=== PATIENT | male | born 1930 | race Caucasian/White ===

== ENCOUNTER 2016-07-10 10:40 | Emergency (ER) | payer BC ==
[2016-07-10 13:42] VITALS: BP 144/74
--- NOTE | 2016-07-10 13:58 | UC ---
Throat Pain/Nasal Shmuel HPI - HPI Summary HPI Summary: Patient has had sinus pressure and eye "fullness" for the past week. denies any fever, but has a cough that is constant and worse at night - History of Current Complaint Chief Complaint: UCRespiratory Stated Complaint: CRAMER,COUGH,ACHY Time Seen by Provider: 07/10/16 13:45 Hx Obtained From: Patient Onset/Duration: Sudden Onset, Lasting Days Severity: Moderate Pain Intensity: 5 Pain Scale Used: 0-10 Numeric Cough: Productive Associated Signs & Symptoms: Positive: Dysphagia, Sinus Discomfort, Nasal Discharge - Epiglottits Risk Factors Epiglottis Risk Factors: Negative - Allergies/Home Medications Allergies/Adverse Reactions: Allergies Allergy/AdvReac Type Severity Reaction Status Date / Time No Known Allergies Allergy Verified 07/10/16 13:37 PMH/Surg Hx/FS Hx/Imm Hx Previously Healthy: Yes Endocrine History Of: Reports: Diabetes, Thyroid Disease Cardiovascular History Of: Reports: Cardiac Disorders, Hypertension - Surgical History Surgical History: Yes Surgery Procedure, Year, and Place: open heart. appy - Family History Known Family History: Negative: Cardiac Disease, Hypertension - Social History Alcohol Use: Daily Alcohol Amount: wine Substance Use Type: None Smoking Status (MU): Never Smoked Tobacco Review of Systems Constitutional: Fatigue Skin: Negative Eyes: Eye Redness ENT: Sore Throat, Nasal Discharge Respiratory: Cough Cardiovascular: Negative Gastrointestinal: Negative Genitourinary: Negative Motor: Negative Neurovascular: Negative Musculoskeletal: Negative Neurological: Headache Psychological: Negative All Other Systems Reviewed And Are Negative: Yes Physical Exam Triage Information Reviewed: Yes Appearance: No Pain Distress, Well-Nourished, Ill-Appearing Vital Signs: Initial Vital Signs Temp 97.9 F 07/10/16 13:37 Pulse 75 07/10/16 13:37 Resp 18 07/10/16 13:37 BP 144/74 07/10/16 13:37 Pulse Ox 99 07/10/16 13:37 Vital Signs Reviewed: Yes Eye Exam: Normal Eyes: Positive: Conjunctiva Inflamed ENT: Positive: Pharyngeal erythema, Nasal congestion, Nasal drainage, TMs normal , Tonsillar exudate Dental Exam: Normal Neck exam: Normal Neck: Positive: Supple, Nontender, No Lymphadenopathy Respiratory Exam: Normal Respiratory: Positive: Chest non-tender, No respiratory distress, No accessory muscle use, Wheezing, Inspiration Cardiovascular Exam: Normal Cardiovascular: Positive: RRR, No Murmur, Pulses Normal Abdominal Exam: Normal Abdomen Description: Positive: Nontender, No Organomegaly, Soft Bowel Sounds: Positive: Present Musculoskeletal Exam: Normal Musculoskeletal: Positive: Strength Intact, ROM Intact, No Edema Neurological Exam: Normal Neurological: Positive: Alert, Muscle Tone Normal Psychological Exam: Normal Skin Exam: Normal Throat Pain/Nasal Course/Dx - Course Course Of Treatment: history obtained, exam performed, medication prescribed. - Differential Dx/Diagnosis Differential Diagnosis/HQI/PQRI: Otitis Media, Pharyngitis, Sinusitis, Tonsillitis Provider Diagnoses: sinusitis Discharge - Discharge Plan Condition: Stable Disposition: HOME Patient Education Materials: Sinusitis (ED) Additional Instructions: take medication as prescribed. if symptoms persist follow up with Dr Monroy.
== END 2016-07-10 14:15 | disposition home or self-care (01) ==
LOC: UCCORT 10:40
DX: J32.9 Chronic sinusitis, unspecified (principal); E11.9 Type 2 diabetes mellitus without complications; I10 Essential (primary) hypertension
CPT/HCPCS: 99202; G0463

== ENCOUNTER 2016-08-28 10:11 | Emergency (ER) | payer BC ==
[2016-08-28 11:03] VITALS: BP 121/72
--- NOTE | 2016-08-28 11:25 | UC ---
Knee Pain HPI - HPI Summary HPI Summary: left knee and ankle pain for a few months. Started with ankle pain, after being on hands and knees in an awkward position for a while. Gradually the left knee started to hurt. Both swelled up. Usually walks with a cane due to Parkinson's, now finding the need to walk with TWO canes due to the joint pain. Not using any meds for it. [facility], [facility] suggested he follow up with his primary care doctor and get XRays and maybe a brace. - History of Current Complaint Chief Complaint: UCLowerExtremity Stated Complaint: LEFT ANKLE/KNEE PAIN Time Seen by Provider: 08/28/16 11:11 Hx Obtained From: Patient, Family/Configuration Specialist - Onset/Duration: Gradual Onset, Lasting Weeks - 8 Severity Initially: Mild Severity Currently: Moderate Character: Dull, Aching, Stiffness Aggravating Factor(s): Weight Bearing, Prolonged Standing, Stairs Alleviating Factor(s): Rest, Position Associated Signs And Symptoms: Positive: Swelling. Negative: Redness, Bruising , Fever, Weakness, Numbness, Tingling Able to Bear Weight: Yes - with 2 canes - Risk Factors Septic Arthritis Risk Factor: Negative Gout Risk Factor: Age ^ 41, Male, HTN - Allergies/Home Medications Allergies/Adverse Reactions: Allergies Allergy/AdvReac Type Severity Reaction Status Date / Time No Known Allergies Allergy Verified 08/28/16 10:56 Home Medications: Home Medications Carbidopa/Levodop 25/100 MG(*) [Sinemet 25/100 TAB(*)] 1.5 tab PO QID 08/28/16 [ History Confirmed 08/28/16] PMH/Surg Hx/FS Hx/Imm Hx - Additional Past Medical History Additional PMH: Parkinson's disease Endocrine History Of: Reports: Diabetes, Thyroid Disease Cardiovascular History Of: Reports: Cardiac Disorders - CAD, Quadruple Bypass 2005, Hypertension - Surgical History Surgical History: Yes Surgery Procedure, Year, and Place: Quadruple Bypass, 2005, [place]; Appendectomy as a child - Family History Known Family History: Negative: Cardiac Disease, Hypertension - Social History Occupation: Retired Lives: With Family Alcohol Use: Daily Alcohol Amount: wine Substance Use Type: None Smoking Status (MU): Never Smoked Tobacco - Immunization History Most Recent Influenza Vaccination: June 2016 Review of Systems Constitutional: Negative Skin: Negative Eyes: Negative ENT: Negative Respiratory: Negative Cardiovascular: Negative Gastrointestinal: Negative Genitourinary: Negative Motor: Negative Neurovascular: Negative Musculoskeletal: Arthralgia Neurological: Negative Psychological: Negative All Other Systems Reviewed And Are Negative: Yes Physical Exam Triage Information Reviewed: Yes Appearance: Well-Appearing, No Pain Distress, Well-Nourished Vital Signs: Initial Vital Signs Temp 97.4 F 08/28/16 10:49 Pulse 86 08/28/16 10:49 Resp 16 08/28/16 10:49 BP 121/72 08/28/16 10:49 Pulse Ox 96 08/28/16 10:49 Vital Signs Reviewed: Yes Eye Exam: Normal Neck exam: Normal Respiratory Exam: Normal Cardiovascular Exam: Normal Musculoskeletal Exam: Other - left knee and ankle swollen. Appear to be arthritic. No redness or increased warmth. Mild discomfort on motion. Neurological Exam: Normal Psychological Exam: Normal Skin Exam: Normal Diagnostics - Laboratory Diagnostic Studies Completed/Ordered: xrays ankle and knee: advanced DJD Knee Pain Course/Dx - Differential Dx/Diagnosis Differential Diagnosis/HQI/PQRI: Fracture (Closed), Gout, Internal Derangement Of Knee, Infection Provider Diagnoses: osteoarthritis Discharge - Discharge Plan Condition: Stable Disposition: HOME Prescriptions: Elastic Bandages & Supports [Knee Compression Sleeve/l] 1 mis XX DAILY PRN #1 mis PRN Reason: knee pain Meloxicam [Mobic] 15 mg PO DAILY PRN #30 tab PRN Reason: Pain Patient Education Materials: Osteoarthritis (ED) Referrals: Denia Monroy MD [Primary Care Provider] -
--- NOTE | 2016-08-28 11:47 | RAD ---
HISTORY: Left knee pain COMPARISONS: None VIEWS: 4, Frontal, lateral, axial, and oblique views of the left knee FINDINGS: BONE DENSITY: There is diffuse osteopenia. BONES: There is no displaced fracture. JOINTS: There is moderate tricompartmental osteoarthritis. There is a small suprapatellar joint effusion. ALIGNMENT: There is no dislocation. SOFT TISSUES: There is peripheral arterial calcification OTHER FINDINGS: None. IMPRESSION: OSTEOPENIA. OSTEOARTHRITIS. JOINT EFFUSION. PERIPHERAL ARTERIAL DISEASE. NO ACUTE OSSEOUS INJURY. THE DEGREE OF OSTEOPENIA MAY MAKE A NONDISPLACED FRACTURE RADIOGRAPHICALLY OCCULT. IF SYMPTOMS PERSIST, RECOMMEND REPEAT IMAGING.
--- NOTE | 2016-08-28 11:48 | RAD ---
HISTORY: Left ankle pain COMPARISONS: None VIEWS: 3, Frontal, lateral, and oblique views of the left ankle FINDINGS: BONE DENSITY: Normal. BONES: There is no displaced fracture. Calcaneal enthesophytes are noted JOINTS: There is mild osteoarthritis of the tibiotalar and fibulotalar articulations. ALIGNMENT: There is no dislocation. SOFT TISSUES: There is peripheral arterial calcification OTHER FINDINGS: None. IMPRESSION: 1. OSTEOPENIA. 2. OSTEOARTHRITIS. 3. PERIPHERAL ARTERIAL DISEASE. 4. NO ACUTE OSSEOUS INJURY. THE DEGREE OF OSTEOPENIA MAY MAKE A NONDISPLACED FRACTURE RADIOGRAPHICALLY OCCULT. IF SYMPTOMS PERSIST, RECOMMEND REPEAT IMAGING.
== END 2016-08-28 12:19 | disposition home or self-care (01) ==
LOC: UCCORT 10:11
DX: M19.072 Primary osteoarthritis, left ankle and foot (principal); M85.872 Other specified disorders of bone density and structure, left ankle and foot; I73.9 Peripheral vascular disease, unspecified; M17.12 Unilateral primary osteoarthritis, left knee; M25.462 Effusion, left knee
CPT/HCPCS: 99213; G0463

== ENCOUNTER 2017-02-20 14:10 | Emergency (ER) | payer BC ==
--- NOTE | 2017-02-20 14:51 | UC ---
Complaint Female HPI - HPI Summary HPI Summary: 86 YEAR OLD MALE PRESENTS WITH COMPLAINS OF URINARY FREQUENCY, URGENCY AND BURNING. - History Of Current Complaint Stated Complaint: URINARY COMPLAINT Time Seen by Provider: 02/20/17 14:49 Onset/Duration: Sudden Onset Timing: Constant Severity Initially: Moderate Severity Currently: Moderate Pain Scale Used: 0-10 Numeric - 4 Character: Sharp Aggravating Factor(s): Movement Associated Signs And Symptoms: Positive: Negative - Allergies/Home Medications Allergies/Adverse Reactions: Allergies Allergy/AdvReac Type Severity Reaction Status Date / Time No Known Allergies Allergy Verified 02/20/17 15:02 Home Medications: Home Medications Polyethylene Glycol 3350* [Miralax*] 17 gm PO DAILY 02/20/17 [History Confirmed 02/20/17] Sulindac 150 mg PO BID 02/20/17 [History Confirmed 02/20/17] Torsemide TAB* [Demadex*] 20 mg PO DAILY 02/20/17 [History Confirmed 02/20/17] PMH/Surg Hx/FS Hx/Imm Hx Previously Healthy: Yes - Surgical History Surgical History: Yes Surgery Procedure, Year, and Place: Quadruple Bypass, [facility]– [place], [place]; Appendectomy as a child - Family History Known Family History: Negative: Cardiac Disease, Hypertension - Social History Alcohol Use: Daily Alcohol Amount: wine Substance Use Type: None Smoking Status (MU): Never Smoked Tobacco - Immunization History Most Recent Influenza Vaccination: June 2016 Review of Systems Constitutional: Negative Skin: Negative Eyes: Negative ENT: Sore Throat, Nasal Discharge, Sinus Congestion, Sinus Pain/Tenderness Respiratory: Negative Cardiovascular: Negative Gastrointestinal: Negative Genitourinary: Negative Motor: Negative Neurovascular: Negative Musculoskeletal: Negative Neurological: Negative Psychological: Negative All Other Systems Reviewed And Are Negative: Yes Physical Exam Triage Information Reviewed: Yes Eye Exam: Normal ENT: Positive: Pharyngeal erythema, Nasal drainage, Other: - BILATERAL CERUMEN IMPACTION Dental Exam: Normal Neck exam: Normal Neck: Positive: 1 Respiratory Exam: Normal Cardiovascular Exam: Normal Abdominal Exam: Normal Musculoskeletal Exam: Normal Neurological Exam: Normal Psychological Exam: Normal Skin Exam: Normal Complaint Female Dx - Differential Dx/Diagnosis Provider Diagnoses: CERUMEN IMPACTION BILATERAL. PHARYNGITIS. SINUSITIS Discharge - Discharge Plan Condition: Stable Disposition: HOME Prescriptions: Ciprofloxacin TAB* [Cipro 500 MG TAB*] 500 mg PO BID #10 tab Patient Education Materials: Urinary Tract Infection in Women (ED) Referrals: Denia Monroy MD [Primary Care Provider] - If Needed
[2017-02-20 15:22] VITALS: BP 137/76
== END 2017-02-20 15:39 | disposition home or self-care (01) ==
LOC: UCCORT 14:10
DX: H61.23 Impacted cerumen, bilateral (principal); J02.9 Acute pharyngitis, unspecified; J32.9 Chronic sinusitis, unspecified
CPT/HCPCS: 81003; 87086; 99212; G0463

== ENCOUNTER 2018-10-16 16:26 | Emergency (ER) | payer MEDICARE ==
[2018-10-16 17:36] VITALS: BP 123/66
--- NOTE | 2018-10-17 10:07 | UC ---
- Progress Note Progress Note: Patient Name: CAROLINE BERMUDEZ JR Medical Record#: [id number] Ordering Physician: Zenia Berman MD Acct.#: [id number] : 1930 Age: 88 Sex: M [place] [facility] [place]: 10/16/181827 ADM Status: [facility] ER Order Information: HAND - LEFT MINIMUM 3 VIEWS Accession Number: [id number] CPT: 13250 INDICATION: Left hand injury. TECHNIQUE: 4 views of the left hand were obtained. FINDINGS: The bones are osteopenic and in normal alignment. No fracture is seen. There is mild to moderate osteoarthritic change in the proximal and distal interphalangeal joints. IMPRESSION: NO EVIDENCE FOR FRACTURE, IF THE PATIENT'S SYMPTOMS PERSIST RECOMMEND FOLLOW-UP IMAGING. R0 Preliminary Imaging Read R0 <Electronically signed by Sohail Carmen MD in [place]> 10/17/18731 Dictated By: Sohail Carmen MD Dictated Date/Time: 10/17/18731 Transcribed Date/Time: 10/17/18729 Copy to: CC:Denia Monroy MD; Zenia Berman MD Imaging - [facility] Imaging - [facility] [address] [place] [address] ph ([phone]) ph ([phone]) ph ([phone]) This report is only to be considered final once signed by the Provider(s) as displayed in the "<Electronically Signed by >" field (s). Absence of a signature indicates the report is in a draft status and still needs to be finalized. In the event this document was created by someone other than the signing Provider, the individual initiating the document will be listed in the "Entered by:" or "Dictated by:" briseno. 1 of 1 Course/Dx - Diagnoses Provider Diagnoses: Urinary frequency, Hand contusion Discharge - Sign-Out/Discharge Documenting (check all that apply): Post-Discharge Follow Up All imaging exams completed and their final reports reviewed: Yes - Discharge Plan Condition: Stable Disposition: HOME Prescriptions: Cephalexin CAP* [Keflex 500 CAP*] 500 mg PO BID #14 cap Patient Education Materials: Urinary Urgency and Frequency (DC) Referrals: Denia Monroy MD [Primary Care Provider] - Additional Instructions: As discussed, your urine did not show an obvious infection today. However, given your symptoms, you have been started on antibiotics. Your urine will sent for additional testing. Stay hydrated. Drink plenty of fluids Monitor your symptoms VERY closely - if you develop fevers, confusion, nausea, pain or ANY other concerns it is recommended you go immediately to the emergency department for further testing Keep your appointment as scheduled with your primary doctor on Sunday. As discussed, your radiograph was reviewed by the provider that treated you tonight. It will be read by a radiologist tomorrow morning. If there is a finding other than that discussed with you today, you will receive a call from a care provider. - Billing Disposition and Condition Condition: STABLE Disposition: Home
--- NOTE | 2018-10-19 07:35 | UC ---
- Progress Note Progress Note: notify pt no uti see primary if still symptomatic stop antibiotic Course/Dx - Diagnoses Provider Diagnoses: Urinary frequency, Hand contusion Discharge - Sign-Out/Discharge Documenting (check all that apply): Post-Discharge Follow Up All imaging exams completed and their final reports reviewed: Yes - Discharge Plan Condition: Stable Disposition: HOME Prescriptions: Cephalexin CAP* [Keflex 500 CAP*] 500 mg PO BID #14 cap Patient Education Materials: Urinary Urgency and Frequency (DC) Referrals: Denia Monroy MD [Primary Care Provider] - Additional Instructions: As discussed, your urine did not show an obvious infection today. However, given your symptoms, you have been started on antibiotics. Your urine will sent for additional testing. Stay hydrated. Drink plenty of fluids Monitor your symptoms VERY closely - if you develop fevers, confusion, nausea, pain or ANY other concerns it is recommended you go immediately to the emergency department for further testing Keep your appointment as scheduled with your primary doctor on Sunday. As discussed, your radiograph was reviewed by the provider that treated you tonight. It will be read by a radiologist tomorrow morning. If there is a finding other than that discussed with you today, you will receive a call from a care provider. - Billing Disposition and Condition Condition: STABLE Disposition: Home
--- NOTE | 2018-10-29 09:30 | UC ---
Complaint Male HPI - HPI Summary HPI Summary: Pt with urinary frequency, urgency. h/o similar with uti. no dysuria, no hematuria No n/v. no abd pain. no back pain. No fever, chills, rash no cp, sob Here with family med reviewed - History of Current Complaint Chief Complaint: UCGU Stated Complaint: URINARY Time Seen by Provider: 10/16/18 17:43 Hx Obtained From: Patient, Family/Seamless Hosiery Knitter, Medical Records Pain Intensity: 0 Pain Scale Used: 0-10 Numeric - Allergies/Home Medications Allergies/Adverse Reactions: Allergies Allergy/AdvReac Type Severity Reaction Status Date / Time No Known Allergies Allergy Verified 10/16/18 17:31 Home Medications: Home Medications Atorvastatin* [Lipitor*] 20 mg PO 1700 10/16/18 [History Confirmed 10/16/18] Ranolazine (NF) [Ranexa (NF)] 500 mg PO DAILY 10/16/18 [History Confirmed ] Sertraline HCl [Zoloft] 25 mg PO DAILY 10/16/18 [History Confirmed 10/16/18] Terazosin CAP* [Hytrin CAP*] 1 mg PO BEDTIME 10/16/18 [History Confirmed ] PMH/Surg Hx/FS Hx/Imm Hx Previously Healthy: Yes - Surgical History Surgical History: Yes Surgery Procedure, Year, and Place: Quadruple Bypass, 2005, [place]; Appendectomy as a child. [place] - Family History Known Family History: Negative: Cardiac Disease, Hypertension - Social History Occupation: Retired Lives: Assisted Living Alcohol Use: Daily Alcohol Amount: wine Substance Use Type: None Smoking Status (MU): Never Smoked Tobacco - Immunization History Most Recent Influenza Vaccination: June 2016 Review of Systems All Other Systems Reviewed And Are Negative: Yes Constitutional: Positive: Negative Skin: Positive: Negative Eyes: Positive: Negative Physical Exam Triage Information Reviewed: Yes Appearance: Well-Appearing, No Pain Distress Vital Signs: Initial Vital Signs Temp 97.9 F 10/16/18 17:31 Pulse 88 10/16/18 17:31 Resp 16 10/16/18 17:31 BP 123/66 10/16/18 17:31 Pulse Ox 94 10/16/18 17:31 Vital Signs Reviewed: Yes Eye Exam: Normal Eyes: Positive: Conjunctiva Clear ENT Exam: Normal ENT: Positive: Normal ENT inspection, Hearing grossly normal Neck exam: Normal Neck: Positive: Supple, Nontender, No Lymphadenopathy Respiratory Exam: Normal Respiratory: Positive: Chest non-tender, Lungs clear, Normal breath sounds, No respiratory distress, No accessory muscle use Cardiovascular Exam: Normal Cardiovascular: Positive: RRR, No Murmur Abdominal Exam: Normal Abdomen Description: Positive: Nontender, No Organomegaly, Soft. Negative: CVA Tenderness (R), CVA Tenderness (L) Musculoskeletal: Positive: Other: - mild dsicmofrt left wrist, radial aspect + full ROM Neurological Exam: Normal Neurological: Positive: Alert Psychological Exam: Normal Complaint Male Course/Dx - Course Course Of Treatment: Pt with urinary frequency, urgency. h/o uti urine non convincing for UTI - but sx concerning will start keflex with culture pending Pt with discomfort left hand -will check xray if neg, supportive care strict return precautions - Differential Dx/Diagnosis Provider Diagnosis: Urinary frequency, Hand contusion Discharge - Sign-Out/Discharge Documenting (check all that apply): Patient Departure All imaging exams completed and their final reports reviewed: Yes - Discharge Plan Condition: Stable Disposition: HOME Prescriptions: Cephalexin CAP* [Keflex 500 CAP*] 500 mg PO BID #14 cap Patient Education Materials: Urinary Urgency and Frequency (DC) Referrals: Denia Monroy MD [Primary Care Provider] - Additional Instructions: As discussed, your urine did not show an obvious infection today. However, given your symptoms, you have been started on antibiotics. Your urine will sent for additional testing. Stay hydrated. Drink plenty of fluids Monitor your symptoms VERY closely - if you develop fevers, confusion, nausea, pain or ANY other concerns it is recommended you go immediately to the emergency department for further testing Keep your appointment as scheduled with your primary doctor on Sunday. As discussed, your radiograph was reviewed by the provider that treated you tonight. It will be read by a radiologist tomorrow morning. If there is a finding other than that discussed with you today, you will receive a call from a care provider. - Billing Disposition and Condition Condition: STABLE Disposition: Home
== END 2018-10-16 18:47 | disposition home or self-care (01) ==
LOC: UCCORT 16:26
DX: R35.0 Frequency of micturition (principal); Z87.440 Personal history of urinary (tract) infections; S60.222A Contusion of left hand, initial encounter; X58.XXXA Exposure to other specified factors, initial encounter; Y92.9 Unspecified place or not applicable; Z95.1 Presence of aortocoronary bypass graft
CPT/HCPCS: 81003; 87086; 99212; G0463

== ENCOUNTER 2019-01-25 16:10 | Emergency (ER) | payer MEDICARE ==
[2019-01-25 16:29] VITALS: BP 123/74
[2019-01-25] MEDS ORDERED: Aspirin 81 mg CHEW TAB* 81 MG TAB.CHEW PO ONE (16:36)
--- NOTE | 2019-01-25 16:36 | UC ---
Cardiac HPI - HPI Summary HPI Summary: 88 yo male has had numerous episodes of sharp chest pain since arising this AM Was very frequent this AM and was associated with mild SOB NO nausea no diaphoresis not dizzy CP last minutes (usually 2-5) - History of Current Complaint Stated Complaint: CHEST PAIN Time Seen by Provider: 01/25/19 16:16 Hx Obtained From: Patient Onset/Duration: Sudden Onset, Lasting Minutes Timing: Intermittent Episodes Lasting: Initial Severity: Moderate Current Severity: None Pain Intensity: 0 Chest Pain Location: Mid Sternal Character: Sharp/Stabbing Aggravating Factor(s): Nothing Alleviating Factor(s): Spontaneous Resolution Associated Signs & Symptoms: Positive: Chest Pain. Negative: Vision Changes, Anxiety, Recent Stress, Headaches, Numbness, Tingling, Weakness, Dizziness - " no worse than normal", SOB, Swelling, Syncope, Fever, Diaphoresis, Nausea/ Vomiting, Palpitations, Cough, Hemoptysis, Back Pain, Abdominal Pain, Calf Pain/ Swelling - Allergy/Home Medications Allergies/Adverse Reactions: Allergies Allergy/AdvReac Type Severity Reaction Status Date / Time No Known Allergies Allergy Verified 10/16/18 17:31 Home Medications: Home Medications Nitroglycerin TAB 0.4 MG* 0.4 mg SL Q5M PRN 01/25/19 [History Confirmed 01/25/19 ] PMH/Surg Hx/FS Hx/Imm Hx Previously Healthy: Yes Endocrine History: Diabetes, Dyslipidemia Cardiovascular History: Cardiac Disease, Hypertension - Surgical History Surgical History: Yes Surgery Procedure, Year, and Place: Quadruple Bypass, [facility] [place], [place]; Appendectomy as a child. [place] - Family History Known Family History: Negative: Cardiac Disease, Hypertension - Social History Alcohol Use: Daily Alcohol Amount: wine Substance Use Type: None Smoking Status (MU): Never Smoked Tobacco - Immunization History Most Recent Influenza Vaccination: June 2016 Review of Systems All Other Systems Reviewed And Are Negative: Yes Constitutional: Positive: Negative Skin: Positive: Negative Eyes: Positive: Negative ENT: Positive: Negative Respiratory: Positive: Negative Cardiovascular: Positive: Chest Pain - none now Gastrointestinal: Positive: Negative Genitourinary: Positive: Negative Motor: Positive: Negative Neurovascular: Positive: Negative Musculoskeletal: Positive: Negative Neurological: Positive: Negative Psychological: Positive: Negative Physical Exam Triage Information Reviewed: Yes Appearance: Well-Appearing, No Pain Distress, Well-Nourished Vital Signs Reviewed: Yes Eyes: Positive: Conjunctiva Clear ENT: Positive: Hearing grossly normal. Negative: Nasal congestion, Nasal drainage, Muffled voice, Hoarse voice Dental Exam: Normal Neck: Positive: Supple Respiratory: Positive: Lungs clear, Normal breath sounds, No respiratory distress, No accessory muscle use Cardiovascular: Positive: RRR. Negative: Tachycardia, Bradycardia Abdomen Description: Negative: Nontender - tender epigastrium and LUQ (mild), Bruit, Pulsatile Mass Bowel Sounds: Positive: Present Musculoskeletal: Positive: ROM Intact, No Edema Neurological: Positive: Alert Psychological Exam: Normal Psychological: Positive: Decreased Age Appropriate Behavior Diagnostics - EKG Cardiac Rate: NL Cardiac Rhythm: Sinus: Normal Ectopy: PVCs ST Segment: Normal Summary of EKG Findings: LAD, LAHB - Assessment/Plan Course Of Treatment: D/W Vivienne Henriquez NP at [facility] Patient desires to go by POV Daughter driving given three baby ASA here - Clinical Impression Provider Diagnosis: Chest pain of uncertain etiology Discharge - Sign-Out/Discharge Documenting (check all that apply): Patient Departure All imaging exams completed and their final reports reviewed: No Studies - Discharge Plan Condition: Fair Disposition: HOME-RECOMMEND TO ED Referrals: Denia Monroy MD [Primary Care Provider] - Additional Instructions: please go directly to the ER for evaluation - Billing Disposition and Condition Condition: FAIR Disposition: Home-Recommend to ED
== END 2019-01-25 16:44 | disposition home health service (06) ==
LOC: UCCORT 16:10
DX: R07.9 Chest pain, unspecified (principal); E11.9 Type 2 diabetes mellitus without complications; I11.9 Hypertensive heart disease without heart failure; Z95.1 Presence of aortocoronary bypass graft
CPT/HCPCS: 93005; 99212; A9270-GY; G0463

== ENCOUNTER 2019-03-12 10:19 | Emergency (ER) | payer MEDICARE ==
--- OUTSIDE RECORDS SUMMARY | 2019-03-12 11:20 | XMS REPORT | Continuity of Care Document ---
:1930 External Reference #:[id number] Author Name Denia Monroy MD (transmitted by agent of provider Lisette Jin) Address [address] [place] [address] Problems Active Problems Provider Date Type 2 diabetes mellitus Denia Monroy MD Onset: 02/18/2013 Secondary parkinsonism Denia Monroy MD Onset: 02/18/2013 Mixed hyperlipidemia Denia Monroy MD Onset: 02/18/2013 Benign essential hypertension Denia Monroy MD Onset: 02/18/2013 Hypothyroidism Denia Monroy MD Onset: 02/18/2013 Coronary arteriosclerosis Denia Monroy MD Onset: 02/18/2013 Vitamin D deficiency Denia Monroy MD Onset: 02/18/2013 Cortical senile cataract Denia Monroy MD Onset: 05/09/2013 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 Social History Type Date Description Comments Sex Unknown ETOH Use Consumes 2 glasses of wine per day Tobacco Use Start: Unknown End: Unknown Patient is a former smoker Smoking Status Reviewed: 10/24/17 Patient is a former smoker Allergies, Adverse Reactions, Alerts Description No Known Drug Allergies Medications Active Medications SIG Qnty Indications Ordering Date Provider Sertraline HCL 1 by mouth every 90tabs Denia Monroy MD 08/15/2018 25mg evening Tablets Acetaminophen take two tablets 100tabs Denia Monroy MD 04/11/2017 325mg by mouth every 6 Tablets hours as needed for pain Atorvastatin Calcium 1 by mouth evening 90tabs Denia Monroy MD 04/11/2017 20mg Tablets Sulindac tab 1 by mouth bid 180tabs Denia Monroy MD 10/09/2016 150mg Tablets Lancets 28G as directed for fs 100units Denia Monroy MD 09/13/2016 28G Misc testing a day dx e11.65 [place] as directed for Denia Monroy MD 08/31/2016 Wheels/8 Adjustment gait instability Holes/1-07/16" and Parkinson's -07/16" Misc Contour Lancets test twice a day 100units Denia Monroy MD 10/16/2013 dx 250.02 called Lancets to pharm Freestyle Lite Test test once a week 200units Cori Morales, 10/08/2013 Strips or as needed. M.D. Strips e11.65 Nitrostat 1 sl as needed for 25tagustabo Monroy MD 02/18/2013 0.3mg cp, may repeat Tablets Sub every 5 mins x 3and then call 911 Multi For Him Denia Monroy MD 02/18/2013 Capsules Vitamin D3 High 1 po qd 180caps Denia Monroy MD 02/18/2013 Potency 1000Unit Capsules Levothyroxine Sodium 1 po qd 90tabs Denia Monroy MD 02/18/2013 150mcg Tablets Lactaid 1 po prn as Denia Monroy MD 02/18/2013 3000Unit directed Tablets Aspir-Low 1 po qd 90tabs Denia Monroy MD 02/18/[address] Nguyen 1.5 tabs po Sourav Enriquez 25-100mg MD Tablets Ranexa 1 by mouth a day Unknown 500mg Tablets for chest pain ER 12HR Neurontin tab 1 by mouth Unknown 300mg three times a day Capsules Torsemide 1 by mouth every Unknown 20mg day Tablets Miralax 17 gms in 8 oz h2o Unknown [id number] Packet every day Terazosin HCL 1 tab by mouth 90captejinder Monroy MD 1mg every night at Capsules bedtime Immunizations CPT Code Status Date Vaccine Lot # [id number] Given 11/19/2018 Pneumovax Polyvalent Inj Im Q2035 Given 04/19/2018 Influenza Virus (Afluria) Split Virus 3 Years Of Age And Older Q2035 Given 04/19/2018 Influenza Virus (Afluria) Split Virus 3 Years Of [id number] Age And Older Q2035 Given 04/11/2017 Influenza Virus (Afluria) Split Virus 3 Years Of Age And Older Q2037 Given 04/13/2016 Influenza Vaccine (Fluvirin) 3 Years Of Age Or Older [id number] Given 05/13/2015 Pneumococcal Conjugate Vaccine 13 Valent For [id number] Intramuscular Use Q2035 Given 04/22/2015 Influenza Virus (Afluria) Split Virus 3 Years Of [id number] Age And Older Q2037 Given 04/14/2014 Influenza Vaccine (Fluvirin) 3 Years Of Age Or [id number] Older 34007 Given 04/14/2014 Pneumovax Polyvalent Inj Im Q2038 Given 04/02/2013 Influenza Vaccine (Fluzone) Administered Age 3 And Older Q2038 Given 04/02/2013 Influenza Vaccine (Fluzone) Administered Age 3 [id number] And Older 35421 Given 06/12/2012 Tetanus,Diphtheria,Adut/Adol Pertussis 27365 Given 07/09/2008 Pneumovax Polyvalent Inj Im Vital Signs Date Vital Result Comment 03/11/2019 9:03am BP Systolic 150 mmHg BP Diastolic 82 mmHg Heart Rate 92 /min Height 69 inches 5'9" O2 % BldC Oximetry 90 % 02/26/2019 3:14pm BP Systolic 98 mmHg BP Diastolic 64 mmHg Heart Rate 94 /min Body Temperature 99.5 F Height 69 inches 5'9" Weight 995.00 lb BMI (Body Mass Index) 146.9 kg/m2 O2 % BldC Oximetry 95 % Results Test Date Facility Test Result H/L Range Note CBC 02/27/2019 [facility] White Blood Count 4.5 K/uL Normal 3.4-10.5 1 [address] [place] [address] [phone] Red Blood Count 3.92 M/uL Low 4.20-5.80 Hemoglobin 13.2 gm/dL Normal 12.8-17.0 Hematocrit 38.6 % Normal 38.0-48.0 Mean Cell Volume 98.5 fl High 80.0-96.0 Mean Corpuscular HGB 33.7 pg High 27.0-33.0 Mean Corpuscular HGB Conc 34.2 g/dL Normal 31.7-36.0 Platelet Count 136 K/uL Low 155-360 Red Cell Distri Width SD 46.3 fl Normal 36-51 Red Cell Distri Width %CV 13.1 % Normal 11.6-15.8 Mean Platelet Volume 9.9 fl Normal 6.6-10.6 NRBC % 0.0 /100WBC < 10/ 100 WBC Basic Metabolic 02/27/2019 [facility] Glucose 110 mg/ dL High 74-106 [address] [place], [place] [id number] [phone] BUN 20 mg/dL High 7-18 Creatinine 0.9 mg/dL Normal 0.6-1.3 Glom Filtration Rate, Estimate >60 mL/min >60 If >60 mL/min >60 3 BUN/Creat 22.2 ratio Sodium 141 mmol/L Normal 136-145 Potassium 3.9 mmol/L Normal 3.5-5.1 Chloride 107 mmol/L Normal 98-107 Carbon Dioxide 28 mmol/L Normal 21-32 Anion Gap 6 mEq/L Low 8-16 Calcium 8.1 mg/dL Low 8.5-10.1 Ua RFX Micro & 02/26/2019 [facility] Urine Color YELLOW Yellow 4 Culture II [address] [place], [place] [id number] [phone] Urine Clarity CLEAR Clear Urine Glucose - Dipstick NEGATIVE mg/dL Negative Urine Bilirubin - Dipstick NEGATIVE Negative Urine Ketone NEGATIVE mg/dL Negative Urine Specific Hamilton 1.010 Normal 1.010-1.030 Urine Blood NEGATIVE Negative Urine PH 5.5 Low 6.5-7.5 Urine Protein - Dipstick NEGATIVE mg/dL Negative Urine Urobilinogen - Dipstick 0.2 E.U./dL Normal 0.2-1.0 Urine Nitrite - Dipstick NEGATIVE Negative Urine Leuk Esterase NEGATIVE Negative Source: URINE, CLEAN CAT <SEE NOTE> 5 CBS W/Automated 02/26/2019 [facility] White 4.9 K/uL Normal 3.4-10.[address] [place] [address] Count [phone] Red Blood Count 4.10 M/uL Low 4.20-5.80 Hemoglobin 14.0 gm/dL Normal 12.8-17.0 Hematocrit 40.5 % Normal 38.0-48.0 Mean Cell Volume 98.8 fl High 80.0-96.0 Mean Corpuscular HGB 34.1 pg High 27.0-33.0 Mean Corpuscular HGB Conc 34.6 g/dL Normal 31.7-36.0 Platelet Count 153 K/uL Low 155-360 Red Cell Distri Width SD 46.7 fl Normal 36-51 Red Cell Distri Width %CV 13.1 % Normal 11.6-15.8 Mean Platelet Volume 9.6 fl Normal 6.6-10.6 Neut% 65.3 % Normal 33.0-73.0 Lymph % 19.5 % Low 20.0-42.0 Orange % 12.2 % High 0.0-10.0 Eo% 2.0 % Normal 0.0-6.6 Bas% 0.6 % Normal 0.0-1.1 Immature Grans 0.4 % Normal 0.0-5.0 NRBC % 0.0 /100WBC < 10/ 100 WBC Neut# 3.21 K/uL Normal 1.8-7.0 Lymph # 0.96 K/uL Low 1.0-4.0 Orange # 0.60 K/uL Normal 0.0-0.8 Eos # 0.10 K/uL Normal 0.0-0.5 Baso # 0.03 K/uL Normal 0.0-0.1 Immature Grans Absolute 0.02 K/uL NRBC # 0.00 K/uL CBS W/Automated 01/25/2019 [facility] White 5.5 K/uL Normal 3.4-10.5 [address] [place] [address] Count [phone] Red Blood Count 4.38 M/uL Normal 4.20-5.80 Hemoglobin 15.1 gm/dL Normal 12.8-17.0 Hematocrit 43.0 % Normal 38.0-48.0 Mean Cell Volume 98.2 fl High 80.0-96.0 Mean Corpuscular HGB 34.5 pg High 27.0-33.0 Mean Corpuscular HGB Conc 35.1 g/dL Normal 31.7-36.0 Platelet Count 158 K/uL Normal 155-360 Red Cell Distri Width SD 46.1 fl Normal 36-51 Red Cell Distri Width %CV 12.8 % Normal 11.6-15.8 Mean Platelet Volume 9.5 fl Normal 6.6-10.6 Neut% 65.6 % Normal 33.0-73.0 Lymph % 20.8 % Normal 20.0-42.0 Orange % 10.1 % High 0.0-10.0 Eo% 2.4 % Normal 0.0-6.6 Bas% 0.7 % Normal 0.0-1.1 Immature Grans 0.4 % Normal 0.0-5.0 NRBC % 0.0 /100WBC < 10/ 100 WBC Neut# 3.63 K/uL Normal 1.8-7.0 Lymph # 1.15 K/uL Normal 1.0-4.0 Orange # 0.56 K/uL Normal 0.0-0.8 Eos # 0.13 K/uL Normal 0.0-0.5 Baso # 0.04 K/uL Normal 0.0-0.1 Immature Grans Absolute 0.02 K/uL NRBC # 0.00 K/uL General Health Panel 11/08/2018 [facility] TSH 5.06 mIU/L High 0.40-4.50 [address] [facility] [address] [place], [place] [id number] [phone] T4,Free 1.0 ng/dL 0.8-1.8 CBC W/ Diff & PLT 11/08/2018 [facility] WBC 4.8 thous/L 3.8-10.8 [address] [facility] [place] [address] [phone] RBC 4.16 mill/L Low 4.20-5.80 Hemoglobin 13.7 g/dL 13.2-17.1 Hematocrit 40.9 % 38.5-50.0 MCV 98.4 FL 80.0-100.0 MCH 33.0 pg 27.0-33.0 MCHC 33.6 g/dL 32.0-36.0 RDW 14.6 % 11.0-15.0 Platelet Count 144 thous/L 140-400 MPV 8.1 FL 7.5-12.5 Neutrophils,Absolute 3070 cells/L [phone] Bands,Absolute PENDING Metamyelocytes,Absolute PENDING Myelocytes,Absolute PENDING Promyelocytes,Absolute PENDING Lymphocytes,Absolute 1150 cells/L 850-3900 Monocytes,Absolute 460 cells/L 200-950 Eosinophils,Absolute 120 cells/L 15-500 Basophils,Absolute 30 cells/L 0-200 Blast Cells,Absolute PENDING Nucleated RBC,Absolute PENDING Total Neutrophils,% 64 % 40-75 Bands,% PENDING Metamyelocytes,% PENDING Myelocytes,% PENDING Promyelocytes,% PENDING Total Lymphocytes,% 24 % 12-47 Reactive Lymphocytes PENDING Monocytes,% 9 % 4-12 Eosinophils,% 2 % 0-4 Basophils,% 1 % 0-1 8 Blasts,% PENDING Nucleated RBC PENDING Comment PENDING CMP W/GFR 11/08/2018 [facility] Sodium 139 mmol/L 135-[address] [place] [address] [phone] Potassium 4.2 mmol/L 3.5-5.3 Chloride 106 mmol/L 98-110 Carbon Dioxide 24 mmol/L 20-32 9 Calcium 9.3 mg/dL 8.6-10.3 Alkaline Phosphatase 84 U/L 40-115 Ast 17 U/L 10-35 Alt 12 U/L 9-46 Bilirubin,Total 0.8 mg/dL 0.2-1.2 Glucose 135 mg/dL High 65-99 10 Urea Nitrogen (BUN) 27 mg/dL High 7-25 Creatinine 1.06 mg/dL 0.70-1.11 11 BUN/Creatinine Ratio 25.5 High 6-22 Protein,Total 5.9 g/dL Low 6.1-8.1 Albumin 4.2 g/dL 3.6-5.1 Globulin,Calculated 1.7 g/dL Low 1.9-3.7 A/G Ratio 2.4 1.0-2.5 Egfr Non-Afr. Tongan 63 ML/MIN/1.73M2 > Or = 60 Egfr 73 ML/MIN/1.73M2 > Or = 60 Lipid Panel 11/08/2018 [facility] Cholesterol 131 mg/dL <[address] [place] [address] [phone] HDL Cholesterol 38 mg/dL Low >40 Cholesterol/HDL Ratio 3.4 CALC <5.0 LDL Chol,Calculated 68 mg/dL 0-100 12 Triglycerides 167 mg/dL High <150 Non-HDL Cholesterol 93 mg/dL <130 13 Laboratory test 11/08/2018 [facility] Creatine 76 U/L 44-[address] [place]ase,[place] [address] [phone] Hemoglobin A1c 6.1 % High 0-5.6 14 Urine Culture And 10/16/2018 [facility] Urine SEE RESULT 15 , [address] [place] [address] [phone] Poc Urinalysis 10/16/2018 [facility] Poc Negative Negative [address] Glucose, [place] [address] Urine [phone] Poc Bilirubin, Urine Negative Negative Poc Ketone, Urine Negative Negative Poc Specific Hamilton, Urine 1.020 Normal 1.010-1.030 Poc Blood, Urine Negative Negative Poc pH, Urine 6.5 Normal 5-9 Poc Protein, Urine Negative Negative Poc Urobilinogen, Urine 2.0 Abnormal Negative Poc Nitrite, Urine Negative Negative Poc Leukocytes, Urine Negative Negative Poc Color, Urine Yellow Poc Clarity, Urine Clear 17 1 ABD PAIN,COLITIS,CONSTIPATION 2 ABD PAIN, COLITIS, CONSTIPATION 3 Note: Persistent reduction for 3 months or more in an eGFR <60 mL/min/1.73 m2 defines CKD. Patients with eGFR values >/=60 mL/min/1.73 m2 may also have CKD if evidence of persistent proteinuria is present. The original MDRD equation for estimated GFR is not valid for patients less than 18 years of age. Additional information may be found at www.kdoqi.org. 4 LT SIDE ABD PAIN 5 URINE, CLEAN CATCH 6 CP, SENT BY CC 7 FASTING 8 Relative blood cell counts (%) should be compared with absolute cell counts (cells/mcL). Relative counts may not be clinically meaningful if the absolute count of one or more cell type is decreased. Reference ranges for relative cell counts derived from: A Manual of Laboratory and Diagnostics Tests, 9th Ed, [employer], 2015. Pediatric Reference Intervals, 7th Ed, [employer], 2011. 9 Reference range for high altitude clients: 18-30 mmol/L 10 GLUCOSE REFERENCE RANGE BASED ON FASTING SPECIMEN. 11 The upper reference limit for Creatinine is approximately 13% higher for people identified as -Tongan. 12 LDL-C is now calculated using the Farzad-Suzie calculation, which is a validated novel method providing better accuracy than the Friedewald equation in the estimation of LDL-C. Farzad ALTMAN et al.MANUEL.2013;310(19):6464-2612 Desirable range <100 mg/dL for primary prevention; <70 mg/dL for patients with CHD or diabetic patients with >or= 2 CHD risk factors. For additional information, please refer to http://[employer]/faq/BXR593(This link is being provided for informational/educational purposes only.) 13 For patients with diabetes plus 1 major ASCVD risk factor, treating to a non-HDL-C goal of <100 mg/dL (LDL-C of <70 mg/ dL) is considered a therapeutic option. 14 For someone without known diabetes, a hemoglobin A1C value between 5.7% and 6.4% is consistent with prediabetes and should be confirmed with a follow-up test. For someone with known diabetes, a value <7% indicates that their diabetes is well controlled. A1C targets should be individualized based on duration of diabetes, age, co-morbid conditions and other considerations. This assay result is consistent with an increased risk of diabetes. Currently, no consensus exists regarding use of hemoglobin A1C for diagnosis of diabetes in children. FOR DIAGNOSTIC PURPOSES: A1C VALUE(% OF TOTAL HEMOGLOBIN) INTERPRETATION < 5.7 CONSISTENT WITH THE ABSENCE OF DIABETES 5.7 - 6.4 CONSISTENT WITH INCREASED RISK OF DIABETES > OR = 6.5 CONSISTENT WITH DIABETES FOR MONITORING PURPOSES (ADA GUIDELINNES): A1C VALUE(% OF TOTAL HEMOGLOBIN) INTERPRETATION < 6.5 ACHIEVES STRINGENT GLYCEMIC GOAL < 7.0 ACHIEVES GENERAL GLYCEMIC GOAL(NON- ADULTS) < 8.0 ACHIEVES LESS STRINGENT GLYCEMIC GOAL 15 [id number] SEE RESULT BELOW Name: CAROLINE BERMUDEZ JR : [address]: Zenia Berman MD Acct: [id number] Unit: [id number] AGE: 88 Location: [facility] Re10/16/18 SEX: M Status: DEP ER SPEC: [id number] JENNIFER: 10/16/[address] [facility] [address]: Zenia Berman MD REQ: [id number] RECD: 10/17/18 STATUS: ANIRUDH ZEPEDA DR: Denia Monroy MD _ SOURCE: URINE SPDESC: ORDERED: Urine Culture COMMENTS: [id number] Procedure Result Reported Site Urine Culture Final 10/18/18- 0915 ML No Growth (<1,000 CFU/mL) * ML - Main Lab . END OF REPORT DEPARTMENT OF PATHOLOGY, [address] [place] [id number] Tony West M.D. 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, unspecified G20 Parkinson's disease E03.9 Hypothyroidism, unspecified I11.9 Hypertensive heart disease without heart failure I25.10 Athscl heart disease of [place] coronary artery w/o ang pctrs E78.5 Hyperlipidemia, unspecified Z00.00 Encntr for general adult medical exam w/o abnormal findings Z23 Encounter for immunization Assessments Date Code Description Provider 02/26/2019 R10.814 Left lower quadrant abdominal tenderness Denia Monroy MD 02/26/2019 R11.0 Nausea Denia Monroy MD 02/26/2019 I95.89 Other hypotension Denia Monroy MD 02/26/2019 R00.0 Tachycardia, unspecified Denia Monroy MD 11/19/2018 E11.51 Type 2 diabetes mellitus with diabetic peripheral Denia Monroy MD angiopathy 11/19/2018 M15.9 Polyosteoarthritis, unspecified Denia Monroy MD 11/19/2018 G20 Parkinson's disease Denia Monroy MD 11/19/2018 E03.9 Hypothyroidism, unspecified Denia Monroy MD 11/19/2018 I11.9 Hypertensive heart disease without heart failure Denia Monroy MD 11/19/2018 I25.10 Atherosclerotic heart disease of [place] coronary Denia Monroy MD artery with 11/19/2018 E78.5 Hyperlipidemia, unspecified Denia Monroy MD 11/19/2018 Z00.00 Encounter for general adult medical examination Denia Monroy MD without abnormal findings 11/19/2018 Z23 Encounter for immunization Denia Monroy MD Plan of Treatment Future Appointment(s):04/10/2019 4:00 pm - Denia Monroy MD at Main Office Functional Status Description No Information Available Mental Status Description No Information Available Referrals Description No Information Available
--- OUTSIDE RECORDS SUMMARY | 2019-03-12 11:20 | XMS REPORT | Continuity of Care Document ---
:1930 External Reference #:[id number] Author Name Johanna Farnsworth Problems Active Problems Provider Date Type 2 [...] Misc testing a day dx e11.65 [place] as directed for Denia Monroy MD 08/31/2016 Wheels/8 Adjustment gait instability Holes/1-07/16" and Parkinson's 1-07/16" Misc Contour Lancets test twice a day [...] 1000Unit Capsules Levothyroxine Sodium 1 po qd 90tagustabo Monroy MD 02/18/2013 150mcg Tablets Lactaid 1 [...] day Terazosin HCL 1 tab by mouth 90yaritza Monroy MD 1mg every night at Capsules bedtime Immunizations CPT Code Status Date Vaccine Lot # [id number] Given 03/11/2019 Influenza Virus (Afluria) Split Virus 3 Years [id number] Of Age And Older 12914 Given 11/19/2018 Pneumovax Polyvalent Inj Im Q2035 Given 04/19/2018 Influenza Virus (Afluria) Split Virus 3 Years Of Age And Older Q2035 Given 04/19/2018 Influenza Virus (Afluria) Split Virus 3 Years [id number] Of Age And Older Q2035 Given 04/11/2017 Influenza Virus (Afluria) Split Virus 3 Years Of Age And Older Q2037 Given 04/13/2016 Influenza Vaccine (Fluvirin) 3 Years Of Age Or Older 02828 Given 05/13/2015 Pneumococcal Conjugate Vaccine 13 Valent For [id number] Intramuscular Use Q2035 Given 04/22/2015 Influenza Virus (Afluria) Split Virus 3 Years [id number] Of Age And Older Q2037 Given 04/14/2014 Influenza Vaccine (Fluvirin) 3 Years Of Age Or [id number] Older 45901 Given 04/14/2014 Pneumovax Polyvalent Inj Im Q2038 Given 04/02/2013 Influenza Vaccine (Fluzone) Administered Age 3 And Older Q2038 Given 04/02/2013 Influenza Vaccine (Fluzone) Administered Age 3 [id number] And Older 03919 Given 06/12/2012 Tetanus,Diphtheria,Adut/Adol Pertussis 01833 Given 07/09/2008 Pneumovax Polyvalent Inj Im Vital Signs Date Vital Result Comment 03/11/2019 9:03am BP Systolic 138 mmHg BP Diastolic 82 mmHg Heart Rate [...] Test Result H/L Range Note CBC 02/27/2019 [facility] White Blood Count 4.5 K/uL Normal 3.4-10.[address] [place] [address] [phone] Red Blood Count 3.92 M/uL Low 4.20-5.80 [...] < 10/ 100 WBC Basic Metabolic 02/27/2019 [facility] Glucose 110 mg/ dL High 74-106 [address] [place], [place] [id number] [phone] BUN 20 mg/dL High 7-18 Creatinine 0.9 mg/dL Normal 0.6-1.3 Glom Filtration Rate, Estimate >60 mL/min >60 If >60 mL/min >60 3 BUN/Creat 22.2 ratio Sodium 141 mmol/L Normal 136-145 Potassium 3.9 mmol/L Normal 3.5-5.1 Chloride 107 mmol/L Normal 98-107 Carbon Dioxide 28 mmol/L Normal 21-32 Anion Gap 6 mEq/L Low 8-16 Calcium 8.1 mg/dL Low 8.5-10.1 Ua RFX Micro & 02/26/2019 [facility] Urine Color YELLOW Yellow 4 Culture II [address] [place], [place] [id number] [phone] Urine Clarity CLEAR Clear Urine Glucose - Dipstick NEGATIVE mg/dL Negative Urine Bilirubin - Dipstick NEGATIVE Negative Urine Ketone NEGATIVE mg/dL Negative Urine Specific [place] 1.010 Normal 1.010-1.030 Urine Blood NEGATIVE Negative Urine PH 5.5 Low 6.5-7.5 Urine Protein - Dipstick NEGATIVE mg/dL Negative Urine Urobilinogen - Dipstick 0.2 E.U./dL Normal 0.2-1.0 Urine Nitrite - Dipstick NEGATIVE Negative Urine Leuk Esterase NEGATIVE Negative Source: URINE, CLEAN CAT <SEE NOTE> 5 CBS W/Automated 02/26/2019 [facility] White 4.9 K/uL Normal 3.4-10.[address] [place] [address] Count [phone] Red Blood Count 4.10 M/uL Low 4.20-5.80 [...] 33.0-73.0 Lymph % 19.5 % Low 20.0-42.0 [place] % 12.2 % High 0.0-10.0 Eo% 2.0 % Normal 0.0-6.6 Bas% 0.6 % Normal 0.0-1.1 Immature Grans 0.4 % Normal 0.0-5.0 NRBC % 0.0 /100WBC < 10/ 100 WBC Neut# 3.21 K/uL Normal 1.8-7.0 Lymph # 0.96 K/uL Low 1.0-4.0 [place] # 0.60 K/uL Normal 0.0-0.8 Eos # 0.10 K/uL Normal 0.0-0.5 Baso # 0.03 K/uL Normal 0.0-0.1 Immature Grans Absolute 0.02 K/uL NRBC # 0.00 K/uL CBS W/Automated 01/25/2019 [facility] White 5.5 K/uL Normal 3.4-10.5 [address] [place] [address] Count [phone] Red Blood Count 4.38 M/uL Normal 4.20-5.80 [...] 33.0-73.0 Lymph % 20.8 % Normal 20.0-42.0 [place] % 10.1 % High 0.0-10.0 Eo% 2.4 % Normal 0.0-6.6 Bas% 0.7 % Normal 0.0-1.1 Immature Grans 0.4 % Normal 0.0-5.0 NRBC % 0.0 /100WBC < 10/ 100 WBC Neut# 3.63 K/uL Normal 1.8-7.0 Lymph # 1.15 K/uL Normal 1.0-4.0 [place] # 0.56 K/uL Normal 0.0-0.8 Eos # 0.13 K/uL Normal 0.0-0.5 Baso # 0.04 K/uL Normal 0.0-0.1 Immature Grans Absolute 0.02 K/uL NRBC # 0.00 K/uL General Health Panel 11/08/2018 [facility] TSH 5.06 mIU/L High 0.40-4.50 [address] [facility] [address] [place], [place] [id number] [phone] T4,Free 1.0 ng/dL 0.8-1.8 CBC W/ Diff & PLT 11/08/2018 [facility] WBC 4.8 thous/L 3.8-10.8 [address] [facility] [place] [address] [phone] RBC 4.16 mill/L Low 4.20-5.80 Hemoglobin 13.7 g/dL 13.2-17.1 Hematocrit 40.9 % 38.5-50.0 MCV 98.4 FL 80.0-100.0 MCH 33.0 pg 27.0-33.0 MCHC 33.6 g/dL 32.0-36.0 RDW 14.6 % 11.0-15.0 Platelet Count 144 thous/L 140-400 MPV 8.1 FL 7.5-12.5 Neutrophils,Absolute 3070 cells/L [phone] Bands,Absolute PENDING Metamyelocytes,Absolute PENDING Myelocytes,Absolute PENDING Promyelocytes,Absolute [...] [facility] Sodium 139 mmol/L 135-[address] [place] [address] [phone] Potassium 4.2 mmol/L 3.5-5.3 Chloride 106 mmol/L [...] 1.9-3.7 A/G Ratio 2.4 1.0-2.5 Egfr Non-Afr. Serbian 63 ML/MIN/1.73M2 > Or = 60 Egfr 73 ML/MIN/1.73M2 > Or = 60 Lipid Panel 11/08/2018 [facility] Cholesterol 131 mg/dL <[address] [place] [address] [phone] HDL Cholesterol 38 mg/dL Low >40 Cholesterol/HDL Ratio 3.4 CALC <5.0 LDL Chol,Calculated 68 mg/dL 0-100 12 Triglycerides 167 mg/dL High <150 Non-HDL Cholesterol 93 mg/dL <130 13 Laboratory test 11/08/2018 [facility] Creatine 76 U/L 44-[address] Kinase,[place] [address] [phone] Hemoglobin A1c 6.1 % High 0-5.6 14 Urine Culture And 10/16/2018 [facility] Urine SEE RESULT 15 , [address] [place] [address] [phone] Poc Urinalysis 10/16/2018 [facility] Poc Negative Negative [address] Glucose, [place] [address] Urine [phone] Poc Bilirubin, Urine Negative Negative Poc Ketone, Urine Negative Negative Poc Specific [place], Urine 1.020 Normal 1.010-1.030 Poc Blood, Urine [...] approximately 13% higher for people identified as -Serbian. 12 LDL-C is now calculated using the Farzad-Suzie calculation, which is a validated novel method providing better accuracy than the Friedewald equation in the estimation of LDL-C. Farzad ALTMAN et al.MANUEL.2013;310(19):1431-5185 Desirable range <100 mg/dL for primary prevention; <70 mg/dL for patients with CHD or diabetic patients with >or= 2 CHD risk factors. For additional information, please refer to http://[employer]/faq/QUR858(This link is being provided for informational/educational purposes [...] 8.0 ACHIEVES LESS STRINGENT GLYCEMIC GOAL 15 [id number] 16 SEE RESULT BELOW Name: CAROLINE BERMUDEZ JR : [address]: Zenia Berman MD Acct: [id number] Unit: [id number] AGE: 88 Location: [facility] Re10/16/18 SEX: M Status: DEP ER SPEC: [id number] JENNIFER: 10/16/18 [facility] DR: Zenia Berman MD REQ: [id number] RECD: 10/17/18 STATUS: ANIRUDH ZEPEDA DR: Denia Monroy MD _ SOURCE: URINE SPDESC: ORDERED: Urine Culture COMMENTS: [id number] Procedure Result Reported Site Urine Culture Final 10/18/18- 0915 ML No Growth (<1,000 CFU/mL) * ML - Main Lab . END OF REPORT DEPARTMENT OF PATHOLOGY, [address] [place] [id number] Tony West M.D. Director [facility] # [id number] 17 Special Education Bus Driver: [id number] Procedures Date Code Description Status 07/17/2013 475090017 Bone Mineral Density Test Completed Medical Devices Description No Information Available Encounters Type Date Location Provider Dx Diagnosis Office Visit 03/11/2019 Main Office eDnia Monroy MD K59.00 Constipation, 9:00a unspecified R10.814 Left lower quadrant abdominal tenderness R11.0 Nausea Office Visit 02/26/2019 3:00p Main Office Denia Monroy MD R10.814 Left lower quadrant abdominal tenderness R11.0 Nausea I95.89 Other hypotension R00.0 Tachycardia, unspecified Office Visit 11/19/2018 4:15p Main Office Denia Monroy MD 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, unspecified G20 Parkinson's disease E03.9 Hypothyroidism, unspecified I11.9 Hypertensive heart disease without heart failure I25.10 Athscl heart disease of [place] coronary artery w/o ang pctrs E78.5 Hyperlipidemia, unspecified Z00.00 Encntr for general adult medical exam w/o abnormal findings Z23 Encounter for immunization Assessments Date Code Description Provider 03/11/2019 K59.00 Constipation, unspecified Denia Monroy MD 03/11/2019 R10.814 Left lower quadrant abdominal tenderness Denia Monroy MD 03/11/2019 R11.0 Nausea Denia Monroy MD 02/26/2019 R10.814 Left lower quadrant abdominal tenderness [...] MD 11/19/2018 I25.10 Atherosclerotic heart disease of [place] coronary Denia Monroy MD artery with 11/19/2018 E78.5 Hyperlipidemia, unspecified Denia Monroy MD 11/19/2018 Z00.00 Encounter for general adult medical examination Denia Monroy MD without abnormal findings 11/19/2018 Z23 Encounter for immunization Denia Monroy MD Plan of Treatment Future Appointment(s):04/10/2019 4:00 pm - Denia Monroy MD at Main [id number] - Denia Monroy MDK59.00 Constipation, unspecifiedComments:TRANSITIONAL CARE VISITADM WITH ABD PAIN, CT REVEALING BLADDER DISTENTION AND CONSTIPATIONNEED TO CONTINUOUSLY HAVE GOOD BOWEL HEALTHMULITFACTORIAL INCLUDING AGE, MEDICATIONS, ACTIVITY FLUID INTAKE AND DIET, ALL OF WHICH REVIEWED EXTENSIVELY W PT AND SONREMINEDED TO CNTINUE MIRALAX DAILYAT DAUGHTER REPORTED REQUEST, REFER TO GI OF THEIR CHOICEBLADDER DISTENTION W URINARY RETENTION NOTED AT THAT HOSPITALIZATION, HAD [facility], AT [facility], SEES THEM LISA RAHMAN THIS ISSUEFOLEY PLACED AND REMOVED BY UROLOGY TEAMReferral:Ricardo Duncan, LlzoxjeylbycvvbnZ82.814 Left lower quadrant abdominal tendernessComments: VRQPCTAZX78.0 NauseaComments:RESOLVEDAllComments:RTO SCHEDULED W LABSRU UROLOGY FOR URINE RETENTION Functional Status Description No Information Available Mental Status Description No Information Available Referrals Refer to Reason for Referral Status Appt Date Ricardo Duncan Closed 03/19/2019 [address], [address] [place] [address] [phone]
--- OUTSIDE RECORDS SUMMARY | 2019-03-12 11:20 | XMS REPORT | Continuity of Care Document ---
:1930 External Reference #:[id number] Author Name Jim Taveras M.D. Address [address] [facility] [address] [place] [address] Care Team Providers Name Role Phone Denia Monroy MD - Internal Medicine Care Team Information Poultry Killer Slim Burroughs MD - Cardiovascular Care Team Information Poultry Killer [phone] Disease Problems Active Problems Provider Date Chest pain Mauricio Larson MD, PhD Onset: 03/16/2011 Hyperlipidemia Mauricio Larson MD, PhD Onset: 03/16/2011 Benign essential hypertension Mauricio Larson MD, PhD Onset: 03/16/2011 Coronary arteriosclerosis Mauricio Larson MD, PhD Onset: 03/16/2011 Dyspnea Grella, Madison A., ANP Onset: 05/18/2014 Chest pain Grella, Madison A., ANP Onset: 05/18/2014 Essential hypertension Grella, Madison A., ANP Onset: 12/01/2015 Retention of urine Jim Taveras M.D. Onset: 03/06/2019 Edema Slim Burroughs MD Onset: 02/15/2017 Drug-induced hypotension Slim Burroughs MD Onset: 02/15/2017 Social History Type Date Description Comments Sex Unknown Tobacco Use Start: Unknown End: Quit 4 yr hx Unknown Tobacco Use Start: Unknown End: Former Cigarette Smoker Unknown ETOH Use Drinks 2 Alcoholic Beverages Per Day Tobacco Use Start: Unknown Patient has never smoked Smoking Status Reviewed: 03/05/19 Patient has never smoked Exercise Type/Frequency Walks daily Allergies, Adverse Reactions, Alerts Description No Known Drug Allergies Medications Active Medications SIG Qnty Indications Ordering Date Provider Ranexa 1 by mouth once a Slim Burroughs MD 03/06/2019 500mg Tablets ER day 12HR Torsemide Take One Tablet By 90tabs R60.0 Tori, 09/26/2017 20mg Tablets Mouth Every Day Mat Chou M.D., [facility] Nitrostat 1. tab s.l. as 25tabs Slim Burroughs MD 03/19/2017 0.4mg Tablets needed every 5 min. Sub Walker/Folding/Adjust G20 Slim Burroughs MD 12/01/2015 able/Adult With Wheels And Seat Misc Levothyroxine Sodium po qd Unknown 150mg Tablets Aspirin 1 po qd Unknown 81mg Tablets Carbidopa/Levodopa 1 1/2 po qid Unknown 25-100mg Tablets Multivitamins 1 po qd Unknown Tablets Vitamin D-1000 one daily Mauricio Larson, Maximum Strength , PhD 1000Unit Tablets Tylenol Arthritis by mouth qd/prn Unknown Pain 650mg Tablets ER Sulindac 1 po twice daily Denia Monroy MD 150mg Tablets Gabapentin 1 by mouth three Unknown 300mg times a day Capsules Atorvastatin Calcium 1 by mouth every 90tabs Slim Burroughs MD day 20mg Tablets Terazosin HCL 1 po daily Santos Dowling, 1mg M.D. Capsules Miralax 1 packet by mouth Unknown [id number] Packet as needed constipation Immunizations Description No Information Available Vital Signs Date Vital Result Comment 03/06/2019 3:46pm BP Systolic Sitting Left Arm 127 mmHg BP Diastolic Sitting Left Arm 75 mmHg Body Temperature 98.5 F Heart Rate 89 /min Respiratory Rate 22 /min O2 % BldC Oximetry 93 % 09/24/2018 3:47pm BP Systolic Sitting Left Arm 122 mmHg BP Diastolic Sitting Left Arm 74 mmHg Heart Rate 71 /min Respiratory Rate 18 /min Height 70 inches 5'10" Weight 221.00 lb BMI (Body Mass Index) 31.7 kg/m2 BSA (Body Surface Area) 2.18 m2 [place] body weight in kilograms 75 kg Results Test Date Facility Test Result H/L Range Note CBC 02/27/2019 [facility] White Blood Count 4.5 K/uL Normal 3.4-10.5 1 [address] [place], [place] [id number] [phone] Red Blood Count 3.92 M/uL Low 4.20-5.80 [...] /100WBC < 10/ 100 WBC Basic Metabolic Panel 02/27/2019 [facility] Glucose 110 mg/dL High 74-106 [address] [place], [place] [id number] [phone] BUN 20 mg/dL High 7-18 Creatinine 0.9 mg/dL Normal 0.6-1.3 Glom Filtration Rate, Estimate >60 mL/min >60 If >60 mL/min >60 2 BUN/Creat 22.2 ratio Sodium 141 mmol/L Normal 136-145 Potassium 3.9 mmol/L Normal 3.5-5.1 Chloride 107 mmol/L Normal 98-107 Carbon Dioxide 28 mmol/L Normal 21-32 Anion Gap 6 mEq/L Low 8-16 Calcium 8.1 mg/dL Low 8.5-10.1 LDL Cholesterol 10/10/2018 [facility] Cholesterol 143 mg/dL <200 3, 4 Profile [address] [place], [place] [id number] [phone] Triglycerides 196 mg/dL High <150 5 HDL Cholesterol 44 mg/dL >40 6 LDL-Cholesterol 60 mg/dL < 100 7 Comprehensive Metabolic 10/10/2018 [facility] Glucose 132 mg/dL High 74-106 Panel [address] [place], [place] [id number] [phone] BUN 28 mg/dL High 7-18 Creatinine 1.2 mg/dL Normal 0.6-1.3 Glom Filtration Rate, Estimate >60 mL/min >60 If >60 mL/min >60 8 BUN/Creat 23.3 ratio Sodium 138 mmol/L Normal 136-145 Potassium 4.3 mmol/L Normal 3.5-5.1 Chloride 105 mmol/L Normal 98-107 Carbon Dioxide 28 mmol/L Normal 21-32 Anion Gap 5 mEq/L Low 8-16 Calcium 8.8 mg/dL Normal 8.5-10.1 Total Protein 6.9 g/dL Normal 6.4-8.2 Albumin 3.9 g/dL Normal 3.4-5.0 Globulin 3.0 g/dL Normal 1.9-4.3 Alb/Glob 1.3 ratio Bilirubin,Total 0.8 mg/dL Normal 0.2-1.0 Sgot/Ast 16 U/L Normal 15-37 SGPT/Alt 19 U/L Normal 12-78 Alkaline Phosphatase 99 U/L Normal 45-117 1 ABD PAIN,COLITIS,CONSTIPATION 2 Note: Persistent reduction for 3 months or more in an eGFR <60 mL/min/1.73 m2 defines CKD. Patients with eGFR values >/=60 mL/min/1.73 m2 may also have CKD if evidence of persistent proteinuria is present. The original MDRD equation for estimated GFR is not valid for patients less than 18 years of age. Additional information may be found at www.kdoqi.org. 3 I25.10 4 Reference Guidelines*: Desirable: ........... < 200 mg/dL Borderline High: ..... 200-239 mg/dL High: ................ >= 240 mg/dL * The National Cholesterol Education Program (NCEP) 5 Reference Guidelines*: Normal: ............. < 150 mg/dL Borderline High: .... 150-199 mg/dL High: ............... 200-499 mg/dL Very High: .......... > 500 mg/dL * Source: National Cholesterol Education Program (NCEP) 6 Reference Guidelines*: Low HDL: ..... < 40 mg/dL Normal: ..... 40-60 mg/dL Desirable: ... > 60 mg/dL *The National Cholesterol Education Program(NCEP) 7 Reference Guidelines*: Optimal:........... <100 mg/dL Near Optimal....... 100-129 mg/dL Borderline High.... 130-159 mg/dL High............... 160-189 mg/dL Very High.......... >=190 mg/dL * Source: National Cholesterol Education Program (NCEP) 8 Note: Persistent reduction for 3 months or more in an eGFR <60 mL/min/1.73 m2 defines CKD. Patients with eGFR values >/=60 mL/min/1.73 m2 may also have CKD if evidence of persistent proteinuria is present. The original MDRD equation for estimated GFR is not valid for patients less than 18 years of age. Additional information may be found at www.kdoqi.org. Procedures Date Code Description Status 09/24/2018 18055 EKG-Tracing And Report Completed Medical Devices Description No Information Available Encounters Type Date Location Provider Dx Diagnosis Office Visit 09/24/2018 Cardiology Office Slim Burroughs MD Z01.810 Encounter for 3:00p preprocedural cardiovascular examination I25.10 Athscl heart disease of [place] coronary artery w/o ang pctrs I35.0 Nonrheumatic aortic (valve) stenosis R60.0 Localized edema I10 Essential (primary) hypertension E78.2 Mixed hyperlipidemia Assessments Date Code Description Provider 03/06/2019 R33.9 Retention of urine, unspecified Jim Taveras M.D. 02/27/2019 R10.32 Left lower quadrant pain Benjamin Hernandez FNP 02/27/2019 K59.00 Constipation, unspecified Benjamin Hernandez FNP 02/27/2019 R93.5 Abnormal findings on diagnostic imaging of Benjamin Hernandez FNP other abdominal regions, including retroperitoneum 02/27/2019 J98.11 Atelectasis Benjamin Hernandez FNP 02/26/2019 R10.32 Left lower quadrant pain Hernando Friedman M.D. 02/26/2019 K59.00 Constipation, unspecified Hernando Friedman M.D. 02/26/2019 R93.5 Abnormal findings on diagnostic imaging of Hernando Friedman M.D. other abdominal regions, including retroperitoneum 02/26/2019 J98.11 Atelectasis Hernando Friedman M.D. 09/24/2018 Z01.810 Encounter for preprocedural cardiovascular Slim Burroughs MD examination 09/24/2018 I25.10 Atherosclerotic heart disease of [place] Slim Burroughs MD coronary artery with 09/24/2018 I35.0 Nonrheumatic aortic (valve) stenosis Slim Burroughs MD 09/24/2018 R60.0 Localized edema Slim Burroughs MD 09/24/2018 I10 Essential (primary) hypertension Slim Burroughs MD 09/24/2018 E78.2 Mixed hyperlipidemia Slim Burroughs MD Plan of Treatment Future Appointment(s):03/11/2019 4:00 pm - Jim Taveras M.D. at [id number] 3:30 pm - Jone Jefferson PA at Cardiology [id number]/06/2019 - Jim Taveras M.D.R33.9 Retention of urine, unspecifiedComments:The patient is electing to have a trial to void. The Hager catheter was removed and the bladder wasirrigated with saline and the patient was able to empty his bladder but he had around 170 cc left behind. I will keep him without a Hager today but if he is unable to urinate he is to come back overnight to the emergency room or to the clinic in the morning. Otherwise I will see him back next week for a postvoid residual. Functional Status Functional Condition Comment Date Status Independent with all ADL's Active Glasses Active Independent with all IADL's Active Standard walker is used to ambulate Active Mental Status Description No Information Available Referrals Description No Information Available
--- OUTSIDE RECORDS SUMMARY | 2019-03-12 11:21 | XMS REPORT | Continuity of Care Document ---
:1930 External Reference #:[id number] Author Name Denia Monroy MD Address [address] [place] [address] Problems Active Problems Provider Date Type 2 [...] Misc testing a day dx e11.65 [place] as directed for Denia Monroy MD 08/31/2016 Wheels/8 Adjustment gait instability Holes/-07/16" and Parkinson's -07/16" Misc Contour Lancets test twice a day 100units Denia Monroy MD 10/16/2013 dx 250.02 called Lancets to pharm Freestyle Lite Test test once a week 200units Cori Morales, 10/08/2013 Strips or as needed. M.DCasa Strips e11.65 Nitrostat 1 sl as needed [...] Nguyen 1.5 tabs po Sourav Enriquez 25-100mg Tablets Ranexa 1 by mouth a day [...] CPT Code Status Date Vaccine Lot # 31662 Given 11/19/2018 Pneumovax Polyvalent Inj Im Q2035 Given 04/19/2018 Influenza Virus (Afluria) Split Virus 3 Years Of Age And Older Q2035 Given 04/19/2018 Influenza Virus (Afluria) Split Virus 3 Years Of [id number] Age And Older Q2035 Given 04/11/2017 Influenza Virus (Afluria) Split Virus 3 Years Of Age And Older Q2037 Given 04/13/2016 Influenza Vaccine (Fluvirin) 3 Years Of Age Or Older 66957 Given 05/13/2015 Pneumococcal Conjugate Vaccine 13 Valent For [id number] Intramuscular Use Q2035 Given 04/22/2015 Influenza Virus (Afluria) Split Virus 3 Years Of [id number] Age And Older Q2037 Given 04/14/2014 Influenza Vaccine (Fluvirin) 3 Years Of Age Or [id number] Older 46817 Given 04/14/2014 Pneumovax Polyvalent Inj Im Q2038 Given 04/02/2013 Influenza Vaccine (Fluzone) Administered Age 3 And Older Q2038 Given 04/02/2013 Influenza Vaccine (Fluzone) Administered Age 3 ig918ea And Older 35337 Given 06/12/2012 Tetanus,Diphtheria,Adut/Adol Pertussis 82131 Given 07/09/2008 Pneumovax Polyvalent Inj Im Vital Signs Date Vital Result Comment 02/26/2019 3:14pm BP Systolic 98 mmHg BP Diastolic 64 mmHg Heart Rate 94 /min Body Temperature 99.5 F Height 69 inches 5'9" Weight 995.00 lb BMI (Body Mass Index) 146.9 kg/m2 O2 % BldC Oximetry 95 % 11/19/2018 4:14pm BP Systolic 132 mmHg BP Diastolic 84 mmHg Heart Rate 84 /min Height 69 inches 5'9" Weight 224.00 lb BMI (Body Mass Index) 33.1 kg/m2 O2 % BldC Oximetry 92 % Results Test Date Facility Test Result H/L Range Note CBS 01/25/2019 [facility] White Blood 5.5 K/uL Normal 3.4-10.5 1 W/Automated [address] Count Diff [place], [place] [address] [phone] Red Blood Count 4.38 M/uL Normal 4.20-5.80 [...] 33.0-73.0 Lymph % 20.8 % Normal 20.0-42.0 Heard % 10.1 % High 0.0-10.0 Eo% 2.4 % Normal 0.0-6.6 Bas% 0.7 % Normal 0.0-1.1 Immature Grans 0.4 % Normal 0.0-5.0 NRBC % 0.0 /100WBC < 10/ 100 WBC Neut# 3.63 K/uL Normal 1.8-7.0 Lymph # 1.15 K/uL Normal 1.0-4.0 Heard # 0.56 K/uL Normal 0.0-0.8 Eos # 0.13 K/uL Normal 0.0-0.5 Baso # 0.04 K/uL Normal 0.0-0.1 Immature Grans Absolute 0.02 K/uL NRBC # 0.00 K/uL General Health Panel 11/08/2018 [facility] TSH 5.06 mIU/L High 0.40-4.50 [address] [facility] [address] [place] [address] [phone] T4,Free 1.0 ng/dL 0.8-1.8 CBC W/ Diff & PLT 11/08/2018 [facility] WBC 4.8 thous/L 3.8-10.[address] [place] [address] [phone] RBC 4.16 mill/L Low 4.20-5.80 Hemoglobin 13.7 g/dL 13.2-17.1 Hematocrit 40.9 % 38.5-50.0 MCV 98.4 FL 80.0-100.0 MCH 33.0 pg 27.0-33.0 MCHC 33.6 g/dL 32.0-36.0 RDW 14.6 % 11.0-15.0 Platelet Count 144 thous/L 140-400 MPV 8.1 FL 7.5-12.5 Neutrophils,Absolute 3070 cells/L [phone] Bands,Absolute PENDING Metamyelocytes,Absolute PENDING Myelocytes,Absolute PENDING Promyelocytes,Absolute PENDING Lymphocytes,Absolute 1150 cells/L 850-3900 Monocytes,Absolute 460 cells/L 200-950 Eosinophils,Absolute 120 cells/L 15-500 Basophils,Absolute 30 cells/L 0-200 Blast Cells,Absolute PENDING Nucleated RBC,Absolute PENDING Total Neutrophils,% 64 % 40-75 Bands,% PENDING Metamyelocytes,% PENDING Myelocytes,% PENDING Promyelocytes,% PENDING Total Lymphocytes,% 24 % 12-47 Reactive Lymphocytes PENDING Monocytes,% 9 % 4-12 Eosinophils,% 2 % 0-4 Basophils,% 1 % 0-1 3 Blasts,% PENDING Nucleated RBC PENDING Comment PENDING CMP W/GFR 11/08/2018 [facility] Sodium 139 mmol/L 135-[address] [place] [address] [phone] Potassium 4.2 mmol/L 3.5-5.3 Chloride 106 mmol/L 98-110 Carbon Dioxide 24 mmol/L 20-32 4 Calcium 9.3 mg/dL 8.6-10.3 Alkaline Phosphatase 84 U/L 40-115 Ast 17 U/L 10-35 Alt 12 U/L 9-46 Bilirubin,Total 0.8 mg/dL 0.2-1.2 Glucose 135 mg/dL High 65-99 5 Urea Nitrogen (BUN) 27 mg/dL High 7-25 Creatinine 1.06 mg/dL 0.70-1.11 6 BUN/Creatinine Ratio 25.5 High 6-22 Protein,Total 5.9 g/dL Low 6.1-8.1 Albumin 4.2 g/dL 3.6-5.1 Globulin,Calculated 1.7 g/dL Low 1.9-3.7 A/G Ratio 2.4 1.0-2.5 Egfr Non-Afr. Kosovan 63 ML/MIN/1.73M2 > Or = 60 Egfr 73 ML/MIN/1.73M2 > Or = 60 Lipid Panel 11/08/2018 [facility] Cholesterol 131 mg/dL <[address] [place] [address] [phone] HDL Cholesterol 38 mg/dL Low >40 Cholesterol/HDL Ratio 3.4 CALC <5.0 LDL Chol,Calculated 68 mg/dL 0-100 7 Triglycerides 167 mg/dL High <150 Non-HDL Cholesterol 93 mg/dL <130 8 Laboratory test 11/08/2018 [facility] Creatine 76 U/L 44-[address] Kinase,[place] [address] [phone] Hemoglobin A1c 6.1 % High 0-5.6 9 Urine Culture And 10/16/2018 [facility] Urine SEE RESULT 10 , [address] [place] [address] [phone] Poc Urinalysis 10/16/2018 [facility] Poc Negative Negative [address] Glucose, [place] [address] Urine [phone] Poc Bilirubin, Urine Negative Negative Poc Ketone, Urine Negative Negative Poc Specific Bells, Urine 1.020 Normal 1.010-1.030 Poc Blood, Urine Negative Negative Poc pH, Urine 6.5 Normal 5-9 Poc Protein, Urine Negative Negative Poc Urobilinogen, Urine 2.0 Abnormal Negative Poc Nitrite, Urine Negative Negative Poc Leukocytes, Urine Negative Negative Poc Color, Urine Yellow Poc Clarity, Urine Clear 12 1 CP, SENT BY CC 2 FASTING 3 Relative blood cell counts (%) should be compared with absolute cell counts (cells/mcL). Relative counts may not be clinically meaningful if the absolute count of one or more cell type is decreased. Reference ranges for relative cell counts derived from: A Manual of Laboratory and Diagnostics Tests, 9th Ed, [employer], 2015. Pediatric Reference Intervals, 7th Ed, [employer], 2011. 4 Reference range for high altitude clients: 18-30 mmol/L 5 GLUCOSE REFERENCE RANGE BASED ON FASTING SPECIMEN. 6 The upper reference limit for Creatinine is approximately 13% higher for people identified as -Kosovan. 7 LDL-C is now calculated using the Farzad-Suzie calculation, which is a validated novel method providing better accuracy than the Friedewald equation in the estimation of LDL-C. Farzad SS et al.MANUEL.2013;310(19):9753-4762 Desirable range <100 mg/dL for primary prevention; <70 mg/dL for patients with CHD or diabetic patients with >or= 2 CHD risk factors. For additional information, please refer to http://education.Renthackr/faq/QQL009(This link is being provided for informational/educational purposes only.) 8 For patients with diabetes plus 1 major ASCVD risk factor, treating to a non-HDL-C goal of <100 mg/dL (LDL-C of <70 mg/ dL) is considered a therapeutic option. 9 For someone without known diabetes, a hemoglobin [...] < 8.0 ACHIEVES LESS STRINGENT GLYCEMIC GOAL 10 [id number] 11 SEE RESULT BELOW Name: CAROLINE BERMUDEZ JR : [address]: Zenia Berman MD Acct: [id number] Unit: [id number] AGE: 88 Location: [facility] Re10/16/18 SEX: M Status: DEP ER SPEC: [id number] JENNIFER: 10/16/18-[address] [facility] [address]: Zenia Berman MD REQ: [id number] RECD: 10/17/18 STATUS: ANIRUDH ZEPEDA DR: Denia Monroy MD _ SOURCE: URINE SPDESC: ORDERED: Urine Culture COMMENTS: [id number] Procedure Result Reported Site Urine Culture Final 10/18/18- 0915 ML No Growth (<1,000 CFU/mL) * ML - [facility] . END OF REPORT DEPARTMENT OF PATHOLOGY, [address] [place] [address] Tony West M.D. 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 E78.5 Hyperlipidemia, unspecified Z00.00 Encntr for general adult medical exam w/o abnormal findings Z23 Encounter for immunization Assessments Date Code Description Provider 02/26/2019 R10.814 Left lower quadrant abdominal tenderness Dneia Monroy MD 02/26/2019 R11.0 Nausea Denia Monroy [...] MD 11/19/2018 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 Denia Monroy MD artery with 11/19/2018 E78.5 Hyperlipidemia, unspecified Denia Monroy MD 11/19/2018 Z00.00 Encounter for general adult medical examination Denia Monroy MD without abnormal findings 11/19/2018 Z23 Encounter for immunization Denia Monroy MD Plan of Treatment Future Appointment(s):04/10/2019 4:00 pm - Denia Monroy MD at Main [id number] 8:00 am - Nurse at Main Zdtrcm3702/26/2019 - Denia Monroy, MDR10.814 Left lower quadrant abdominal fdfhisrnwqW81.0 JsknekK84.89 Other hypotensionComments: 98 SYSTOLIC SITTING, 100 SYSTOLIC LYINGHR 101R00.0 Tachycardia, unspecifiedAllComments:WITH ABOVE CLINICAL FINDINGS, CONCERN FOR DIVERTICULITIS AND PERFORATIONNEED CBC, CMP, CT ABD/PELVIS, THEREFORE, SEND TO EDDISCUSSED WITH ED PROVIDER (ALVERTO), NOT SAFE TO BLINDLY TREAT FROM OFFICE WITHOUT LABS AND CTPATIENT AND DAUGHTER AWARE, THEY PREFER TO TAKE PT TO ED BY CAR. Functional Status Description No Information Available Mental Status Description No Information Available Referrals Description No Information Available
--- OUTSIDE RECORDS SUMMARY | 2019-03-12 11:21 | XMS REPORT | Continuity of Care Document ---
:1930 External Reference #:[id number] Author Name Johanna Farnsworth Problems Active Problems [...] Misc testing a day dx e11.65 [facility] [place] as directed for Denia Monroy MD 08/31/2016 [...] 81mg Tablets DR Nguyen 1.5 tabs po luisanad Sourav Evans 25-100mg MD Tablets Ranexa 1 by mouth [...] CPT Code Status Date Vaccine Lot # 00357 Given 11/19/2018 Pneumovax Polyvalent Inj Im Q2035 Given 04/19/2018 Influenza Virus (Afluria) Split Virus 3 Years Of Age And Older Q2035 Given 04/19/2018 Influenza Virus (Afluria) Split Virus 3 Years Of [id number] Age And Older Q2035 Given 04/11/2017 Influenza Virus (Afluria) Split Virus 3 Years Of Age And Older Q2037 Given 04/13/2016 Influenza Vaccine (Fluvirin) 3 Years Of Age Or Older 70142 Given 05/13/2015 Pneumococcal Conjugate Vaccine 13 Valent For Q81014 Intramuscular Use Q2035 Given 04/22/2015 Influenza Virus (Afluria) Split Virus 3 Years Of [id number] Age And Older Q2037 Given 04/14/2014 Influenza Vaccine (Fluvirin) 3 Years Of Age Or [id number] Older 33273 Given 04/14/2014 Pneumovax Polyvalent Inj Im Q2038 Given 04/02/2013 Influenza Vaccine (Fluzone) Administered Age 3 And Older Q2038 Given 04/02/2013 Influenza Vaccine (Fluzone) Administered Age 3 wk718we And Older 03561 Given 06/12/2012 Tetanus,Diphtheria,Adut/Adol Pertussis 45125 Given 07/09/2008 Pneumovax Polyvalent Inj Im Vital [...] Test Result H/L Range Note CBC 02/27/2019 [facility] White Blood Count 4.5 K/uL Normal 3.4-10.5 1 [address] [place], [place] [address] [phone] Red Blood Count 3.92 M/uL Low 4.20-5.80 [...] < 10/ 100 WBC Basic Metabolic 02/27/2019 [facility] Glucose 110 mg/ dL High 74-106 [address] [place], [place] [address] [phone] BUN 20 mg/dL High 7-18 Creatinine 0.9 mg/dL Normal 0.6-1.3 Glom Filtration Rate, Estimate >60 mL/min >60 If >60 mL/min >60 3 BUN/Creat 22.2 ratio Sodium 141 mmol/L Normal 136-145 Potassium 3.9 mmol/L Normal 3.5-5.1 Chloride 107 mmol/L Normal 98-107 Carbon Dioxide 28 mmol/L Normal 21-32 Anion Gap 6 mEq/L Low 8-16 Calcium 8.1 mg/dL Low 8.5-10.1 Ua RFX Micro & 02/26/2019 [facility] Urine Color YELLOW Yellow 4 Culture II [address] [place], [place] [address] [phone] Urine Clarity CLEAR Clear Urine Glucose - Dipstick NEGATIVE mg/dL Negative Urine Bilirubin - Dipstick NEGATIVE Negative Urine Ketone NEGATIVE mg/dL Negative Urine Specific Energy 1.010 Normal 1.010-1.030 Urine Blood NEGATIVE Negative Urine PH 5.5 Low 6.5-7.5 Urine Protein - Dipstick NEGATIVE mg/dL Negative Urine Urobilinogen - Dipstick 0.2 E.U./dL Normal 0.2-1.0 Urine Nitrite - Dipstick NEGATIVE Negative Urine Leuk Esterase NEGATIVE Negative Source: URINE, CLEAN CAT <SEE NOTE> 5 CBS W/Automated 02/26/2019 [facility] White 4.9 K/uL Normal 3.4-10.[address] [place] [address] Count [phone] Red Blood Count 4.10 M/uL Low 4.20-5.80 [...] 33.0-73.0 Lymph % 19.5 % Low 20.0-42.0 Saline % 12.2 % High 0.0-10.0 Eo% 2.0 % Normal 0.0-6.6 Bas% 0.6 % Normal 0.0-1.1 Immature Grans 0.4 % Normal 0.0-5.0 NRBC % 0.0 /100WBC < 10/ 100 WBC Neut# 3.21 K/uL Normal 1.8-7.0 Lymph # 0.96 K/uL Low 1.0-4.0 Saline # 0.60 K/uL Normal 0.0-0.8 Eos # 0.10 K/uL Normal 0.0-0.5 Baso # 0.03 K/uL Normal 0.0-0.1 Immature Grans Absolute 0.02 K/uL NRBC # 0.00 K/uL CBS W/Automated 01/25/2019 [facility] White 5.5 K/uL Normal 3.4-10.5 [address] [place] [address] Count [phone] Red Blood Count 4.38 M/uL Normal 4.20-5.80 [...] 33.0-73.0 Lymph % 20.8 % Normal 20.0-42.0 Saline % 10.1 % High 0.0-10.0 Eo% 2.4 % Normal 0.0-6.6 Bas% 0.7 % Normal 0.0-1.1 Immature Grans 0.4 % Normal 0.0-5.0 NRBC % 0.0 /100WBC < 10/ 100 WBC Neut# 3.63 K/uL Normal 1.8-7.0 Lymph # 1.15 K/uL Normal 1.0-4.0 Saline # 0.56 K/uL Normal 0.0-0.8 Eos # 0.13 K/uL Normal 0.0-0.5 Baso # 0.04 K/uL Normal 0.0-0.1 Immature Grans Absolute 0.02 K/uL NRBC # 0.00 K/uL General Health Panel 11/08/2018 [facility] TSH 5.06 mIU/L High 0.40-4.50 [address] [facility] [address] [place] [address] [phone] T4,Free 1.0 ng/dL 0.8-1.8 CBC W/ Diff & PLT 11/08/2018 [facility] WBC 4.8 thous/L 3.8-10.8 [address] [facility] [place] [address] [phone] RBC 4.16 mill/L Low 4.20-5.80 Hemoglobin 13.7 g/dL 13.2-17.1 Hematocrit 40.9 % 38.5-50.0 MCV 98.4 FL 80.0-100.0 MCH 33.0 pg 27.0-33.0 MCHC 33.6 g/dL 32.0-36.0 RDW 14.6 % 11.0-15.0 Platelet Count 144 thous/L 140-400 MPV 8.1 FL 7.5-12.5 Neutrophils,Absolute 3070 cells/L [phone] Bands,Absolute PENDING Metamyelocytes,Absolute PENDING Myelocytes,Absolute PENDING Promyelocytes,Absolute [...] [facility] Sodium 139 mmol/L 135-[address] [place], [place] [address] [phone] Potassium 4.2 mmol/L 3.5-5.3 Chloride 106 mmol/L [...] 1.9-3.7 A/G Ratio 2.4 1.0-2.5 Egfr Non-Afr. Croatian 63 ML/MIN/1.73M2 > Or = 60 Egfr 73 ML/MIN/1.73M2 > Or = 60 Lipid Panel 11/08/2018 [facility] Cholesterol 131 mg/dL <[address] [place] [address] [phone] HDL Cholesterol 38 mg/dL Low >40 Cholesterol/HDL Ratio 3.4 CALC <5.0 LDL Chol,Calculated 68 mg/dL 0-100 12 Triglycerides 167 mg/dL High <150 Non-HDL Cholesterol 93 mg/dL <130 13 Laboratory test 11/08/2018 [facility] Creatine 76 U/L 44-[address] Kinase,[place] [address] [phone] Hemoglobin A1c 6.1 % High 0-5.6 14 Urine Culture And 10/16/2018 AFTER-MOUSE Urine SEE RESULT 15 , [address] [address] [phone] Poc Urinalysis 10/16/2018 AFTER-MOUSE Poc Negative Negative [address] Glucose, [place] [address] Urine [phone] Poc Bilirubin, Urine Negative Negative Poc Ketone, Urine Negative Negative Poc Specific Energy, Urine 1.020 Normal 1.010-1.030 Poc Blood, Urine [...] approximately 13% higher for people identified as -Croatian. 12 LDL-C is now calculated using the Farzad-Suzie calculation, which is a validated novel method providing better accuracy than the Friedewald equation in the estimation of LDL-C. Farzad ALTMAN et al.MANUEL.2013;310(19):4757-8093 Desirable range <100 mg/dL for primary prevention; <70 mg/dL for patients with CHD or diabetic patients with >or= 2 CHD risk factors. For additional information, please refer to http://Clickberry.[employer]/faq/YGU266(This link is being provided for informational/educational purposes [...] 8.0 ACHIEVES LESS STRINGENT GLYCEMIC GOAL 15 [id number] 16 SEE RESULT BELOW Name: CAROLINE BERMUDEZ JR : [address]: Zenia Berman MD Acct: [id number] Unit: [id number] AGE: 88 Location: [facility] Re10/16/18 SEX: M Status: DEP ER SPEC: [id number] JENNIFER: 10/16/18 [facility] DR: Zenia Berman MD REQ: [id number] RECD: 10/17/18 STATUS: ANIRUDH ZEPEDA DR: Denia Monroy MD _ SOURCE: URINE SPDESC: ORDERED: Urine Culture COMMENTS: [id number] Procedure Result Reported Site Urine Culture Final 10/18/18- 15 ML No Growth (<1,000 CFU/mL) * ML - [facility] . END OF REPORT DEPARTMENT OF PATHOLOGY, [address] [place] [address] Tony West M.D. Director [facility] # [id number] Continuous Dryout Operator Helper: [id number] Procedures Date Code Description Status 07/17/2013 [id number] Bone Mineral Density Test Completed Medical Devices [...] Type 2 diabetes mellitus with diabetic peripheral Denai Monroy MD angiopathy 11/19/2018 M15.9 Polyosteoarthritis, unspecified [...] pm - Denia Monroy MD at Main [id number] 8:00 am - Nurse at Main Kuifco9602/26/2019 - Denia Monroy, MDR10.814 Left lower quadrant abdominal afnykxfjxoZ20.0 RjobzoD61.89 Other hypotensionComments: 98 SYSTOLIC SITTING, 100 SYSTOLIC [...]
--- OUTSIDE RECORDS SUMMARY | 2019-03-12 11:21 | XMS REPORT | Continuity of Care Document ---
:1930 External Reference #:[id number] Author Name Denia Monroy MD (transmitted by agent of provider Ariana Prieto) Address [address] [place] [address] Problems Active Problems Provider Date Type 2 [...] Misc testing a day dx e11.65 Walker Allen as directed for Denia Monroy MD 08/31/2016 [...] CPT Code Status Date Vaccine Lot # [id number] Given 11/19/2018 Pneumovax Polyvalent Inj Im Q2035 Given 04/19/2018 Influenza Virus (Afluria) Split Virus 3 Years Of Age And Older Q2035 Given 04/19/2018 Influenza Virus (Afluria) Split Virus 3 Years Of [id number] Age And Older Q2035 Given 04/11/2017 Influenza Virus (Afluria) Split Virus 3 Years Of Age And Older Q2037 Given 04/13/2016 Influenza Vaccine (Fluvirin) 3 Years Of Age Or Older [id number] Given 05/13/2015 Pneumococcal Conjugate Vaccine 13 Valent For [id number] Intramuscular Use Q2035 Given 04/22/2015 Influenza Virus (Afluria) Split Virus 3 Years Of [id number] Age And Older Q2037 Given 04/14/2014 Influenza Vaccine (Fluvirin) 3 Years Of Age Or [id number] Older [address]54[address] Given 04/14/2014 Pneumovax Polyvalent Inj Im Q2038 Given 04/02/2013 Influenza Vaccine (Fluzone) Administered Age 3 And Older Q2038 Given 04/02/2013 Influenza Vaccine (Fluzone) Administered Age 3 [id number] And Older 39107 Given 06/12/2012 Tetanus,Diphtheria,Adut/Adol Pertussis 81350 Given 07/09/2008 Pneumovax Polyvalent Inj Im Vital [...] Test Result H/L Range Note CBS 01/25/2019 [facility] White Blood 5.5 K/uL Normal 3.4-10.5 1 W/Automated [address] Count Diff [place], [place] [id number] [phone] Red Blood Count 4.38 M/uL Normal 4.20-5.80 [...] 33.0-73.0 Lymph % 20.8 % Normal 20.0-42.0 [place] % 10.1 % High 0.0-10.0 Eo% 2.4 % Normal 0.0-6.6 Bas% 0.7 % Normal 0.0-1.1 Immature Grans 0.4 % Normal 0.0-5.0 NRBC % 0.0 /100WBC < 10/ 100 WBC Neut# 3.63 K/uL Normal 1.8-7.0 Lymph # 1.15 K/uL Normal 1.0-4.0 [place] # 0.56 K/uL Normal 0.0-0.8 Eos # 0.13 K/uL Normal 0.0-0.5 Baso # 0.04 K/uL Normal 0.0-0.1 Immature Grans Absolute 0.02 K/uL NRBC # 0.00 K/uL General Health Panel 11/08/2018 [facility] TSH 5.06 mIU/L High 0.40-4.50 [address] [facility] [address] [place] [address] [phone] T4,Free 1.0 ng/dL 0.8-1.8 CBC W/ Diff & PLT 11/08/2018 [facility] WBC 4.8 thous/L 3.8-10.[address] [place] [address] [phone] RBC 4.16 mill/L Low 4.20-5.80 Hemoglobin 13.7 g/dL 13.2-17.1 Hematocrit 40.9 % 38.5-50.0 MCV 98.4 FL 80.0-100.0 MCH 33.0 pg 27.0-33.0 MCHC 33.6 g/dL 32.0-36.0 RDW 14.6 % 11.0-15.0 Platelet Count 144 thous/L 140-400 MPV 8.1 FL 7.5-12.5 Neutrophils,Absolute 3070 cells/L [phone] Bands,Absolute PENDING Metamyelocytes,Absolute PENDING Myelocytes,Absolute PENDING Promyelocytes,Absolute [...] [facility] Sodium 139 mmol/L 135-[address] [place] [address] [phone] Potassium 4.2 mmol/L 3.5-5.3 Chloride 106 mmol/L [...] 1.9-3.7 A/G Ratio 2.4 1.0-2.5 Egfr Non-Afr. [place] 63 ML/MIN/1.73M2 > Or = 60 Egfr 73 ML/MIN/1.73M2 > Or = 60 Lipid Panel 11/08/2018 [facility] Cholesterol 131 mg/dL <[address] [place] [address] [phone] HDL Cholesterol 38 mg/dL Low >40 Cholesterol/HDL Ratio 3.4 CALC <5.0 LDL Chol,Calculated 68 mg/dL 0-100 7 Triglycerides 167 mg/dL High <150 Non-HDL Cholesterol 93 mg/dL <130 8 Laboratory test 11/08/2018 [facility] Creatine 76 U/L 44-[address] Kinase,[place] [address] [phone] Hemoglobin A1c 6.1 % High 0-5.6 9 Urine Culture And 10/16/2018 [facility] Urine SEE RESULT 10 , [address] [place] [address] [phone] Poc Urinalysis 10/16/2018 [facility] Poc Negative Negative [address] Glucose, [place] [address] Urine [phone] Poc Bilirubin, Urine Negative Negative Poc Ketone, Urine Negative Negative Poc Specific [place], Urine 1.020 Normal 1.010-1.030 Poc Blood, Urine [...] Reference Intervals, 7th Ed, [employer], 2011. 4 Reference range for high altitude clients: 18-30 mmol/L 5 GLUCOSE REFERENCE RANGE BASED ON FASTING SPECIMEN. 6 The upper reference limit for Creatinine is approximately 13% higher for people identified as -[place]. 7 LDL-C is now calculated using the Farzad-Suzie calculation, which is a validated novel method providing better accuracy than the Friedewald equation in the estimation of LDL-C. Farzad ALTMAN et al.MANUEL.2013;310(19):7528-3643 Desirable range <100 mg/dL for primary prevention; <70 mg/dL for patients with CHD or diabetic patients with >or= 2 CHD risk factors. For additional information, please refer to http://education.Zytoprotec/faq/AGA406(This link is being provided for informational/educational purposes [...] 8.0 ACHIEVES LESS STRINGENT GLYCEMIC GOAL 10 [id number] 11 SEE RESULT BELOW Name: CAROLINE BERMUDEZ JR : [address]: Zenia Berman MD Acct: [id number] Unit: [id number] AGE: 88 Location: [facility] Re10/16/18 SEX: M Status: DEP ER SPEC: [id number] JENNIFER: 10/16/18-1834 [facility] DR: Zenia Berman MD REQ: [id number] RECD: 10/17/18 STATUS: ANIRUDH ZEPEDA DR: Denia Monroy MD _ SOURCE: URINE SPDESC: ORDERED: Urine Culture COMMENTS: [id number] Procedure Result Reported Site Urine Culture Final 10/18/18- 0915 ML No Growth (<1,000 CFU/mL) * ML - Main Lab . END OF REPORT DEPARTMENT OF PATHOLOGY, [address] [place] [address] Tony West M.D. 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, unspecified G20 Parkinson's disease E03.9 Hypothyroidism, unspecified I11.9 Hypertensive heart disease without heart failure I25.10 Athscl heart disease of [place] coronary artery w/o ang pctrs E78.5 Hyperlipidemia, unspecified Z00.00 Encntr for general adult medical exam w/o abnormal findings Z23 Encounter for immunization Assessments Date Code Description Provider 11/19/2018 E11.51 Type 2 diabetes mellitus with diabetic peripheral Denia Monroy MD angiopathy 11/19/2018 M15.9 Polyosteoarthritis, unspecified Denia Monroy MD 11/19/2018 G20 Parkinson's disease Denia Monroy MD 11/19/2018 E03.9 Hypothyroidism, unspecified Denia Monroy MD 11/19/2018 I11.9 Hypertensive heart disease without heart failure Denia Monroy MD 11/19/2018 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
[2019-03-12 11:32] VITALS: BP 111/74
--- NOTE | 2019-03-12 12:32 | UC ---
Hip/Pelvis Pain - HPI Summary HPI Summary: left hip/ upper leg pain x 1 day s/p fall on his left side as he was going to his bathroom this morning pain si 6 out of 10 , worse with walking , better when sitting - History Of Current Complaint Chief Complaint: UCLowerExtremity Stated Complaint: S/P FALL, LEFT LEG COMPLAINT Time Seen by Provider: 03/12/19 11:35 Hx Obtained From: Patient Onset/Duration: Sudden Onset, Lasting Days - 1, Still Present Timing: Constant Severity Initially: Moderate Severity Currently: Moderate Pain Intensity: 9 Location: Discrete At: - left hip Character Of Pain: Aching Aggravating Factor(s): Movement, Weight Bearing Alleviating Factor(s): Rest Associated Signs And Symptoms: Positive: Weakness. Negative: Swelling, Redness , Bruising - Allergies/Home Medications Allergies/Adverse Reactions: Allergies Allergy/AdvReac Type Severity Reaction Status Date / Time No Known Allergies Allergy Verified 10/16/18 17:31 PMH/Surg Hx/FS Hx/Imm Hx - Additional Past Medical History Additional PMH: high cholesterol Parkinsons Chronic left knee pain Arthritis Endocrine History: Diabetes Cardiovascular History: Cardiac Disease, Hypertension - Surgical History Surgical History: Yes Surgery Procedure, Year, and Place: Quadruple Bypass, [facility], [place]; [place]end[place] a child[place] - Family History Known Family History: Negative: Cardiac Disease, Hypertension - Social History Alcohol Use: Daily Alcohol Amount: wine Substance Use Type: None Smoking Status (MU): Never Smoked Tobacco - Immunization History Most Recent Influenza Vaccination: June 2016 Review of Systems All Other Systems Reviewed And Are Negative: Yes Constitutional: Positive: Negative Skin: Positive: Negative Eyes: Positive: Negative ENT: Positive: Negative Is Patient Immunocompromised?: No Physical Exam Triage Information Reviewed: Yes Appearance: Well-Nourished, Pain Distress Vital Signs: Initial Vital Signs Temp 98.6 F 03/12/19 11:25 Pulse 84 03/12/19 11:25 Resp 18 03/12/19 11:25 BP 111/74 03/12/19 11:25 Pulse Ox 95 03/12/19 11:25 Vital Signs Reviewed: Yes Eye Exam: Normal Eyes: Positive: Conjunctiva Clear ENT: Positive: Normal ENT inspection, Hearing grossly normal, Pharynx normal Neck: Positive: Supple, Nontender, No Lymphadenopathy Respiratory: Positive: Chest non-tender, Lungs clear, Normal breath sounds Cardiovascular: Positive: RRR, No Murmur, Pulses Normal Musculoskeletal: Positive: Other: - right hip : no tenderness , no swelling, no bruising , limited ROM on flexen , tenderness mid humerus , Diagnostics - Radiology No standard instances Radiology Interpretation Completed By: Radiologist Summary of Radiographic Findings: IMPRESSION: OSTEOPENIA. OSTEOARTHRITIS. PERIPHERAL ARTERIAL DISEASE. NO RADIOGRAPHIC EVIDENCE FOR HIP FRACTURE. X- RAYS MAY BE NEGATIVE WITH NONDISPLACED HIP FRACTURE, IF THERE IS PERSISTENT CLINICAL CONCERN, RECOMMEND CONSIDERATION OF MRI. IN THE SETTING OF CONTRAINDICATION TO MRI OR LIMITATION IN EMERGENT ACCESS TO MRI, CT WOULD BE SUGGESTED. Hip Injury Course/Dx - Differential Dx/Diagnosis Provider Diagnosis: Contusion of left hip Discharge ED - Sign-Out/Discharge Documenting (check all that apply): Patient Departure All imaging exams completed and their final reports reviewed: Yes - Discharge Plan Condition: Stable Disposition: HOME Patient Education Materials: Hip Contusion (ED) Referrals: Denia Monroy MD [Primary Care Provider] - 5 Days Additional Instructions: xray report : IMPRESSION: OSTEOPENIA. OSTEOARTHRITIS. PERIPHERAL ARTERIAL DISEASE. NO RADIOGRAPHIC EVIDENCE FOR HIP FRACTURE. X-RAYS MAY BE NEGATIVE WITH NONDISPLACED HIP FRACTURE, IF THERE IS PERSISTENT CLINICAL CONCERN, RECOMMEND CONSIDERATION OF MRI. IN THE SETTING OF CONTRAINDICATION TO MRI OR LIMITATION IN EMERGENT ACCESS TO MRI, CT WOULD BE SUGGESTED. please follow up in 5 days with your pcp , if cont. to have pain , may need to order an MRI / CT - Billing Disposition and Condition Condition: STABLE Disposition: Home
== END 2019-03-12 12:42 | disposition home or self-care (01) ==
LOC: UCCORT 10:19
DX: S70.02XA Contusion of left hip, initial encounter (principal); W19.XXXA Unspecified fall, initial encounter; Y93.01 Activity, walking, marching and hiking; Y92.009 Unspecified place in unspecified non-institutional (private) residence as the place of occurrence of the external cause; E11.9 Type 2 diabetes mellitus without complications; I10 Essential (primary) hypertension; Z95.1 Presence of aortocoronary bypass graft
CPT/HCPCS: 99212; G0463

== ENCOUNTER 2019-03-18 11:22 | Emergency (ER) | payer MEDICARE ==
--- OUTSIDE RECORDS SUMMARY | 2019-03-18 11:59 | XMS REPORT | Continuity of Care Document ---
:1930 External Reference #:[id number] Author Name Jim Taveras M.D. Address [address] [facility] [address] [place] [address] Care Team Providers Name Role Phone Denia Monroy MD - Internal Medicine Care Team Information Records Section Supervisor Slim Burroughs MD - Cardiovascular Care Team Information Records Section Supervisor [phone] Disease Problems Active Problems Provider Date Chest [...] Patient has never smoked Smoking Status Reviewed: 03/07/19 Patient has never smoked Exercise Type/Frequency Walks daily Allergies, Adverse Reactions, Alerts Description No Known Drug Allergies Medications Active Medications SIG Qnty Indications Ordering Date Provider Ranexa 1 by mouth once a Slim Burroughs MD 03/06/2019 500mg Tablets ER day 12HR Torsemide Take One Tablet By 90tabs R60.0 Tori, 09/26/2017 20mg Tablets Mouth Every Day Mat Chou M.D., [facility] Nitrostat 1. tab s.l. as 25tabs Slim [...] Available Vital Signs Date Vital Result Comment 03/11/2019 4:07pm BP Systolic 143 mmHg BP Diastolic 69 mmHg Body Temperature 98.3 F Heart Rate 90 /min Respiratory Rate 16 /min Height 70 inches 5'10" Weight 220.50 lb BMI (Body Mass Index) 31.6 kg/m2 BSA (Body Surface Area) 2.18 m2 [place] body weight in kilograms 75 kg O2 % BldC Oximetry 93 % Pain Level 5 03/06/2019 3:46pm BP Systolic Sitting Left Arm 127 mmHg BP Diastolic Sitting Left Arm 75 mmHg Body Temperature 98.5 F Heart Rate 89 /min Respiratory Rate 22 /min O2 % BldC Oximetry 93 % Results Test Date Facility Test Result H/L Range Note CBC 02/27/2019 [facility] White Blood Count 4.5 K/uL Normal 3.4-10.5 [address] [place] [address] [phone] Red Blood Count 3.92 M/uL Low 4.20-5.80 [...] 10/ 100 WBC Basic Metabolic Panel 02/27/2019 [facility] Glucose 110 mg/dL High 74-106 [address] [place] [address] [phone] BUN 20 mg/dL High 7-18 Creatinine 0.9 mg/dL Normal 0.6-1.3 Glom Filtration Rate, Estimate >60 mL/min >60 If >60 mL/min >60 2 BUN/Creat 22.2 ratio Sodium 141 mmol/L Normal 136-145 Potassium 3.9 mmol/L Normal 3.5-5.1 Chloride 107 mmol/L Normal 98-107 Carbon Dioxide 28 mmol/L Normal 21-32 Anion Gap 6 mEq/L Low 8-16 Calcium 8.1 mg/dL Low 8.5-10.1 LDL Cholesterol 10/10/2018 [facility] Cholesterol 143 mg/dL <200 3, 4 Profile [address] [place] [address] [phone] Triglycerides 196 mg/dL High <150 5 HDL Cholesterol 44 mg/dL >40 6 LDL-Cholesterol 60 mg/dL < 100 7 Comprehensive Metabolic 10/10/2018 [facility] Glucose 132 mg/dL High 74-106 Panel [address] [place] [address] [phone] BUN 28 mg/dL High 7-18 Creatinine 1.2 [...] at [email or web address]. Procedures Date Code Description Status 03/06/2019 03290 Irrigation Of Bladder Completed 09/24/2018 99348 EKG-Tracing And Report Completed Medical Devices Description No Information Available Encounters Type Date Location Provider Dx Diagnosis Office Visit 03/11/2019 Urology Nitin R33.9 Retention of urine, 4:00p Kerrie Fernandez unspecified Office Visit 03/06/2019 Urology Nitin R33.9 Retention of urine, 3:45p Kerrie Fernandez unspecified Office Visit 09/24/2018 Cardiology Office Slim Burroughs MD Z01.810 Encounter for 3:00p preprocedural cardiovascular examination I25.10 Athscl heart disease of [place] coronary artery w/o ang pctrs I35.0 Nonrheumatic aortic (valve) stenosis R60.0 Localized edema I10 Essential (primary) hypertension E78.2 Mixed hyperlipidemia Assessments Date Code Description Provider 03/11/2019 R33.9 Retention of urine, unspecified Jim Taveras M.D. 03/06/2019 R33.9 Retention of urine, unspecified Jim [...] examination 09/24/2018 I25.10 Atherosclerotic heart disease of [place] Slim Burroughs MD coronary artery with 09/24/2018 I35.0 Nonrheumatic aortic (valve) stenosis Slim Burroughs MD 09/24/2018 R60.0 Localized edema Slim Burroughs MD 09/24/2018 I10 Essential (primary) hypertension Slim Burroughs MD 09/24/2018 E78.2 Mixed hyperlipidemia Slim Burroughs MD Plan of Treatment Future Appointment(s):04/14/2019 4:00 pm - Jim Taveras M.D. at [id number] 10:50 am - Dharmesh Arriaza MD at GI04/07/2019 3:30 pm - Jone Jefferson PA at Cardiology [id number]/11/2019 - Jim Taveras M.D.R33.9 Retention of urine, unspecifiedComments:Patient is not in full urinary retention. He is still able to empty his bladder. His random bladder scan is acceptable right now. We'll need to keep a close eye on it. I will increase his Terazosinto 2mg /day . Pt to follow up in 2 weeks Functional Status Functional Condition Comment Date Status Independent with all ADL's Active Glasses Active Independent with all IADL's Active Standard walker is used to ambulate Active Mental Status Description No Information Available Referrals Description No Information Available
[2019-03-18 12:04] VITALS: BP 128/73
--- NOTE | 2019-03-18 13:18 | UC ---
Hip/Pelvis Pain - HPI Summary HPI Summary: left leg / hip pain x 1 week s/p fall on his left side one week ago pain is 7 out of 10 , worse with standing , better with rest, cannot bear weight was at the urgent care one week ago xray was negative for fracture - History Of Current Complaint Chief Complaint: UCLowerExtremity Stated Complaint: RECHECK LEFT LEG CONCERN Time Seen by Provider: 03/18/19 12:12 Hx Obtained From: Patient, Family/Water Vessel Captain Onset/Duration: Sudden Onset, Lasting Weeks - 1, Still Present Timing: Constant Severity Initially: Severe Severity Currently: Severe Pain Intensity: 7 Pain Scale Used: 0-10 Numeric Location: Discrete At: - left hip Character Of Pain: Aching Aggravating Factor(s): Movement, Weight Bearing Alleviating Factor(s): Rest Associated Signs And Symptoms: Positive: Weakness. Negative: Swelling, Redness , Bruising, Fever, Dizziness, Syncope, Abdominal Pain, Knee Pain - Allergies/Home Medications Allergies/Adverse Reactions: Allergies Allergy/AdvReac Type Severity Reaction Status Date / Time No Known Allergies Allergy Verified 03/18/19 12:01 PMH/Surg Hx/FS Hx/Imm Hx - Additional Past Medical History Additional PMH: Arthritis, Dyslipidemia, Chronic Left Knee Pain, Parkinson's Endocrine History: Diabetes Cardiovascular History: Cardiac Disease, Hypertension - Surgical History Surgical History: Yes Surgery Procedure, Year, and Place: Quadruple Bypass, 2005, [place]; [place] a child. [place] - Family History Known Family History: Negative: Cardiac Disease, Hypertension - Social History Alcohol Use: ~1 drink most days Alcohol Amount: wine Substance Use Type: None Smoking Status (MU): Never Smoked Tobacco - Immunization History Most Recent Influenza Vaccination: June 2016 Review of Systems All Other Systems Reviewed And Are Negative: Yes Is Patient Immunocompromised?: No Physical Exam Triage Information Reviewed: Yes Appearance: Well-Appearing, No Pain Distress, Well-Nourished Vital Signs: Initial Vital Signs Temp 97.3 F 03/18/19 11:57 Pulse 91 03/18/19 11:57 Resp 18 03/18/19 11:57 BP 128/73 03/18/19 11:57 Pulse Ox 96 03/18/19 11:57 Vital Signs Reviewed: Yes Eye Exam: Normal Eyes: Positive: Conjunctiva Clear ENT: Positive: Normal ENT inspection, Hearing grossly normal, Pharynx normal Neck exam: Normal Neck: Positive: Supple, Nontender, No Lymphadenopathy Respiratory Exam: Normal Respiratory: Positive: Chest non-tender, Lungs clear, Normal breath sounds Cardiovascular: Positive: RRR, No Murmur, Pulses Normal Musculoskeletal: Positive: Other: - left hip : no tenderness, no swelling, limited ROM on flexion , limited strength left lower leg : + tenderness distal leg / ankly , + swelling , Diagnostics - Radiology No standard instances Radiology Interpretation Completed By: Radiologist Summary of Radiographic Findings: left hip xray: FINDINGS: The bones are normal alignment. There appears be a nondisplaced fracture of the left greater trochanter. No other fractures are seen. There is mild to moderate bilateral osteoarthritic change in the hips. IMPRESSION: PROBABLE NONDISPLACED FRACTURE OF THE LEFT GREATER TROCHANTER RECOMMEND CT IMAGING FOR BETTER DEFINITION. Hip Injury Course/Dx - Differential Dx/Diagnosis Provider Diagnosis: Fracture of left hip Discharge ED - Sign-Out/Discharge Documenting (check all that apply): Patient Departure All imaging exams completed and their final reports reviewed: Yes - Discharge Plan Condition: Stable Disposition: HOME Patient Education Materials: Hip Fracture (ED) Referrals: Denia Monroy MD [Primary Care Provider] - Additional Instructions: [facility] go to [facility] ED for evaluation and tx - Billing Disposition and Condition Condition: STABLE Disposition: Home
== END 2019-03-18 13:11 | disposition home or self-care (01) ==
LOC: UCCORT 11:22
DX: M25.552 Pain in left hip (principal); M85.88 Other specified disorders of bone density and structure, other site; M16.12 Unilateral primary osteoarthritis, left hip; G89.29 Other chronic pain; M25.562 Pain in left knee; G20 Parkinson's disease; Z95.1 Presence of aortocoronary bypass graft
CPT/HCPCS: 99212; G0463